=== PATIENT | male | born 1955 | race Caucasian/White ===

== ENCOUNTER → 2018-08-06 | Outpatient (CLI) | payer BC, MEDICARE ==
[~2018-08-06] MED LIST: MORPHINE SULFAT15 M3 PO; MS CONTIN15 MG PO; MULTIVITAMINS1 EAC7 PO; OMEPRAZOLE40 MG PO; SYNTHROID88 MCG PO
--- NOTE | 2018-09-14 10:00 | PAINCON ---
[address] [address] PAIN MANAGEMENT CONSULTATION Name: NEREIDA MORTON Room: [facility] GONZALEZ SolorioEmmett#: [id number] Admission: 08/06/18 Attend Phys: Tae Garcia MD Discharge: Date of : 59 Report #: [id number] THIS REPORT FOR: //name// CC: FAM physician/PCP Naila Garcia DATE OF SERVICE: 08/06/2018 CHIEF COMPLAINT: Chronic pain. "I have seen 13 different neurologists over the last 19 years." HISTORY OF PRESENT ILLNESS: The patient is a 63-year-old gentleman who has been referred to the pain clinic for evaluation of chronic back and headache pain. States that he has had pain, which has been problematic for many years. He recalls having seen about 13 different neurologists and has been treated with CT, MRIs and a number of other tests with no real definite findings for the chronic pain he experienced in the anterior forehead area. He does have pain and discomfort in his low back area. He has had a history of degenerative joint disease in his back. He did have spinal cord stimulator placed in the past. He did not have long-term benefit and it was removed. He has undergone acupuncture. He has had a series of epidural steroid injections over the years with no long-term benefit. He has undergone biofeedback. He has undergone bariatric surgery. At this juncture, it is found that morphine has been the best reliever for his pain. He has recently moved to [place]. States that his works in association with [employer]. She was given a job in this area and this reason, they have moved here. The patient was followed by pain specialist of [place] in [place]. Information from the pain center there indicated that the patient has had no problems with his medications. He has been trustworthy. They would gladly resume his care should he choose to return to [place]. He has been treated with morphine sulfate 15 mg p.o. b.i.d. p.r.n. as well as MS Contin 15 mg 1 p.o. b.i.d. and ketorolac 30 mg injections p.r.n. migraine headaches. ALLERGIES: No known drug allergies. CURRENT MEDICATIONS: Synthroid 88 mcg, morphine sulfate 15 mg b.i.d., morphine extended release/MS Contin 15 mg q. 12 hours, multivitamins, omeprazole. Medicines used in the past: Ketorolac 30 mg injection p.r.n. migraine headache. PAST MEDICAL HISTORY: Gout, hypertension, borderline diabetes, obstructive sleep apnea and seasonal allergies, history of skin cancer - melanoma, painful left breast mass, COPD, depressive disorder, hypothyroidism, gout, orthostatic hypotension, mixed hyperlipidemia, chronic migraines greater than 15 years, right urethral duplication. Macular degeneration in [place] [address] PAIN MANAGEMENT CONSULTATION Name: NEREIDA MORTON Room: [facility] GONZALEZ Sheridan#: [id number] Admission: 08/06/18 Attend Phys: Tae Garcia MD Discharge: Date of : 59 Report #: [id number] thought that the vessels in the eye may be compromised, potentially contributing to his headaches. Prostate cancer with metastases to the colon -- status post chemotherapy, radiation and radioactive endoscopic seed implantations -- found to be cancer free post-treatment. PAST SURGICAL HISTORY: Salivary stone removal; dental surgeries; left knee surgery; skin cancer resection, umbilical hernia repair, 01/2012; spinal cord stimulator implant, 09/17/2012; gastric sleeve, 02/27/2015; spinal cord stimulator explant, 08/14/2015; interventional treatments and supraorbital block, no benefit, 2011; lower extremity epidural steroid injection, good relief, 50%, but only for 2 months; spinal cord stimulator trial, 60-70% relief, single lead trial. 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 REVIEW OF SYSTEMS: Questionnaire generally good health, has fatigue, weakness, headaches, wears glasses, blurred vision, glaucoma/cataracts, hearing loss, swelling in feet, ankles, hands, asthma, frequent urination, awakes at night to urinate, has had cancer, some sexual difficulties, joint pain, joint stiffness, weakness of muscles and joints, muscle pain and cramps, back pain, difficulty walking, varicose veins, recurring headaches, lightheadedness. LABORATORY DATA: No laboratory values are available at the time of our interview. PAIN CLINIC ASSESSMENT: 1. History of osteoarthritis. The patient is suffering from some degenerative joint disease in his low back area. He has also been found to have osteoporosis. 2. Height 5 feet 6 inches, weight 187 pounds, BMI is 30. 3. Vital signs: Blood pressure 153/75, heart rate 67, respiratory rate 16, room air saturation 97%, temperature 98.7. Pain score 4 out of 10, 3 out of 10 for the back and degenerative joint problems. 4. Fall risk. The patient has not fallen over the last 3 months. Did get trip by his dogs. 5. Blood thinner. The patient is not on a blood thinning medication. 6. Hypertension. The patient is not being treated for hypertension at this juncture. 7. Opioid therapy greater than 6 weeks. The patient has been receiving opioid medications. Last received them from his pain clinic in [place], [place]. He has been in good standing. 8. Functional assessment tool. 9. Recreational drug use. The patient denies use of recreational drugs. 10. Tobacco: The patient stopped smoking cigarettes in 1996, had a 73-jwtt-mztk smoking history. Does chew tobacco at this juncture. 11. Alcohol: One to two [place] [address] PAIN MANAGEMENT CONSULTATION Name: NEREIDA MORTON Room: [facility]#: [id number] Admission: 08/06/18 Attend Phys: Tae Garcia MD Discharge: Date of : 59 Report #: [id number] PHYSICAL EXAMINATION: GENERAL: The patient is a well-developed, well-nourished white male. Appears his stated age. He is alert and oriented x 3. Speech is fluent. HEENT: Normocephalic, atraumatic. Extraocular eye muscles intact. Sclerae nonicteric. Mucous membranes are moist. NECK: Without JVD, adenopathy. The patient does have some pain and discomfort in the frontotemporal area on the left, etiology of which has remained enigmatic for a number of years. HEART: Regular rate. S1, S2. LUNGS: Clear to auscultation without rhonchi or rales. ABDOMEN: Protuberant without organomegaly. EXTREMITIES: Upper extremity muscle strength is judged to be 5/5 for the major muscle groups in the upper extremities with +1 biceps, reach flexes. Lower extremity muscle strength is judged to be 5/5 for the major muscle groups. The patient has some low back pain and discomfort. He has some achy pain with a stabbing sensation in the L4-L5 paraspinous area bilaterally. Muscle strength in the lower extremities is gauged to be 5/5 for the major muscle groups. Sensory is within normal limits. IMPRESSION: 1. Chronic headache, pain greater than 15 years. Nonspecific migraine like headaches, etiology unknown. 2. Low back axial pain status post spinal stimulator placement/removed 2013. 3. Gout. 4. Hypertension. 5. Borderline diabetes. 6. Obstructive sleep apnea and seasonal allergies. 7. History of skin cancer - melanoma. 8. Painful left breast mass. 9. COPD. 10. Depressive disorder. 11. Hypothyroidism. 12. Gout. 13. Orthostatic hypotension. 14. Mixed hyperlipidemia. 15. Chronic migraines greater than 15 years. 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 17. Macular degeneration in his left eye. It is thought that the vessels in the eye may be compromised, potentially contributing to his headaches. 18. Prostate cancer with metastases to the colon -- status post chemotherapy, radiation and radioactive endoscopic seed implantations -- found to be cancer free post-treatment. RECOMMENDATIONS: We discussed treatment options with the patient. At this point, we received his information from the pain clinical lab [place] [address] PAIN MANAGEMENT CONSULTATION Name: NEREDIA MORTON Room: [facility] GONZALEZ Sheridan#: [id number] Admission: 08/06/18 Attend Phys: Tae Garcia MD Discharge: Date of : 59 Report #: [id number] It appears that the patient was in good standing. They would be happy to take him back should he return to the area. We will continue with his current medical regimen of MS Contin 15 mg b.i.d. daily as well as morphine immediate release 15 mg daily. He will follow up in the near future. We will then have the patient sign a contract with the pain clinic indicating that he will get his medications from 1 source. We would like to thank you for letting us participate in his care. We hope he continues to improve. <ELECTRONICALLY SIGNED> By: Tae Garcia MD 09/14/18 1000 1553 [id number]. Junior Garcia MD /nt
== END ==
LOC: M.PC 11:18
DX: M54.5 Low back pain (principal); G89.29 Other chronic pain; G43.709 Chronic migraine without aura, not intractable, without status migrainosus; I10 Essential (primary) hypertension; G47.33 Obstructive sleep apnea (adult) (pediatric); J44.9 Chronic obstructive pulmonary disease, unspecified; E03.9 Hypothyroidism, unspecified; E78.2 Mixed hyperlipidemia; C61 Malignant neoplasm of prostate; F32.9 Major depressive disorder, single episode, unspecified; M10.9 Gout, unspecified; I95.1 Orthostatic hypotension; H35.3220 Exudative age-related macular degeneration, left eye, stage unspecified

== ENCOUNTER → 2018-08-18 | Outpatient (CLI) | payer BC, MEDICARE ==
--- NOTE | 2018-09-14 10:00 | PAINCON ---
[facility] [address] [place] [address] PAIN MANAGEMENT CONSULTATION Name: NEREIDA MORTON Room: [facility] GONZALEZ RobertsonLara#: [id number] Admission: 08/18/18 Attend Phys: Tae Garcia MD Discharge: Date of : 59 Report #: [id number] THIS REPORT FOR: //name// CC: [facility] physician/PCP Naila Anaya DATE OF SERVICE: 08/18/2018 FOLLOWUP COMPLAINT: Here for medication. FOLLOWUP HISTORY: The patient is a 63-year-old gentleman who has been followed in the pain clinic because of chronic pain in his back as well as headaches. As you recall, he was re-established himself in [place]. His works for [email or web address]. At this juncture, he was looking for a new Pain Clinic. He was seen by the Pain Clinic in [place]. Overall, things are going reasonably well with him. He has returned today for a renewal of his medications. He feels like things are going reasonably well. Has no real concerns. ALLERGIES: No known drug allergies. CURRENT MEDICATIONS: Synthroid 88 mcg, morphine 15 mg b.i.d. immediate release, morphine extended release/MS Contin 15 mg q.12h., multivitamins, omeprazole. PAIN CLINIC ASSESSMENT 1. History of osteoarthritis. The patient is suffering from some degenerative joint disease in the low back area. He also has been found to have osteoporosis. 2. Height 5 feet 6 inches, weight 187 pounds, BMI is 30. 3. Vital signs: Blood pressure 142/92, heart rate 83, respiratory rate 16, room air saturation 97%, temperature 98.5. 4. Pain score 3/10. 5. Fall history: The patient has not fallen in the last 3 months. 6. Blood thinner. The patient is not on a blood thinning medication. 7. Hypertension. The patient is not being treated for hypertension. 8. Opioid therapy greater than 6 weeks. The patient will receive his medications from one source, the Pain Clinic. 9. Functional assessment tool. 10. Recreational drug use. The patient denies use of recreational drugs. 11. Tobacco: the patient stop smoking cigarettes in 1996, had a 90-qgdy-aphp smoking history. 12. Alcohol: The patient denies use of alcoholic beverages. PHYSICAL EXAMINATION: GENERAL: The patient is a well-developed, well-nourished white male. Appears his stated age. He is alert and oriented x 3. [place] [address] PAIN MANAGEMENT CONSULTATION Name: NEREIDA MORTON Room: [facility]#: [id number] Admission: 08/18/18 Attend Phys: Tae Garcia MD Discharge: Date of : 59 Report #: [id number] HEENT: Normocephalic, atraumatic. Extraocular eye muscles intact. Sclerae nonicteric. Mucous membranes are moist. NECK: Without JVD, adenopathy, or adenopathy. The patient does have some pain and discomfort in the frontal areas of his head. This has remained ____ for a number of years. HEART: Heart rate regular S1, S2. LUNGS: Clear to auscultation without rhonchi or rales. ABDOMEN: Protuberant without organomegaly. EXTREMITIES: Upper extremity strength is judged to be 5/5 for the major muscle groups. Lower extremity muscle strength is judged to be 5/5 for the major muscle groups. IMPRESSION: 1. Chronic headaches, pain greater than 15 years. Nonspecific migraine like headaches, etiology unknown. 2. Low back pain, status post spinal cord stimulator placement and removal in 2013. 3. Gout. 4. Hypertension. 5. Borderline diabetes. 6. Obstructive sleep apnea with seasonal allergies. 7. History of skin cancer -- melanoma. 8. Painful left breast mass. 9. Chronic obstructive pulmonary disease 10. Digoxin depressive disorder. 11. Hypothyroidism. 12. Gout. 13. Orthostatic hypotension. 14. Mixed hyperlipidemia. 15. Chronic migraine headaches greater than 15 years. 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 17. Macular degeneration, left eye. 18. Prostate cancer with metastasis to the colon, status post chemotherapy radiation found to be cancer free. RECOMMENDATIONS: We discussed treatment options with the patient. We will continue with his current medical regimen, which he was under in [place]. He states that the medications continue to be helpful. A script for his medications has been written. He will follow up in a month. He will call us if he has any problems [place] [address] PAIN MANAGEMENT CONSULTATION Name: NEREIDA MORTON [id number] Admission: 08/18/18 Attend Phys: Tae Garcia MD Discharge: Date of : 59 Report #: [id number] We would like to thank you for letting us participate in his care. We hope he continues to improve. <ELECTRONICALLY SIGNED> By: Tae Garcia MD 09/14/18 1000 [id number] [id number] Garcia MD /nt
== END ==
LOC: M.PC 05:57
DX: M54.5 Low back pain (principal); G89.29 Other chronic pain; I10 Essential (primary) hypertension; G47.33 Obstructive sleep apnea (adult) (pediatric); J44.9 Chronic obstructive pulmonary disease, unspecified; E03.9 Hypothyroidism, unspecified; E78.2 Mixed hyperlipidemia; G43.909 Migraine, unspecified, not intractable, without status migrainosus; C61 Malignant neoplasm of prostate; N64.4 Mastodynia; M10.9 Gout, unspecified; F32.9 Major depressive disorder, single episode, unspecified; I95.1 Orthostatic hypotension; H35.3121 Nonexudative age-related macular degeneration, left eye, early dry stage; Z79.899 Other long term (current) drug therapy

== ENCOUNTER → 2018-09-15 | Outpatient (CLI) | payer BC, MEDICARE ==
--- NOTE | 2018-10-14 15:56 | PAINCON ---
[facility] [address] [place] [address] PAIN MANAGEMENT CONSULTATION Name: NEREIDA MORTON Room: [facility] MarceloLara#: [id number] Admission: 09/15/18 Attend Phys: Tae Garcia MD Discharge: Date of : 59 Report #: [id number] THIS REPORT FOR: //name// CC: Tae Issa DATE OF SERVICE: 09/15/2018 CHIEF COMPLAINT: "Medication renewal and would like to get a handicap sticker, I had one when I was in [place]." FOLLOW-UP HISTORY: The patient is a 63-year-old gentleman who has been followed in the Pain Clinic because of chronic pain involving his back. He also has headache pain. He has re-established in [place]. He had good records while being covered by Pain Clinic in [place]. Overall, he has followed up here and finds that his medications are helpful. He had a problem with walking. He was issued a sticker in [place] for handicap parking. He would like to proceed with another sticker while being a [place] resident. Overall, things are going reasonably well. He is having no problem with his medications. He has returned today for renewal of the medications. ALLERGIES: No known drug allergies. CURRENT MEDICATIONS: Synthroid 88 mcg, morphine 15 mg b.i.d. immediate release, morphine extended release 15 mg q. 12 hours, multivitamins, omeprazole. PAIN CLINIC ASSESSMENT/PQRS: 1. History of osteoarthritis: The patient has some degenerative changes in his back. He has also been found to have osteoporosis. He is not being treated for rheumatoid arthritis. 2. Height 5 feet 6 inches, weight 195 pounds, BMI is 30. 3. Vital signs: Blood pressure 140/79, heart rate 71, respiratory rate 16, room air saturation 98%, temperature 98.5. 4. Pain intensity score: 3/10. 5. Fall history: The patient has not fallen in the last 3 months. 6. Blood thinner: The patient is not on a blood thinning medication. 7. Hypertension: The patient is not being treated for hypertension. 8. Opioid therapy greater than 6 weeks: The patient receives all his medications through one clinic, the pain Clinic. 9. Risk assessment tool: Low for use of opioid. 10. Recreational drug use: The patient denies use of recreational drugs. 11. Tobacco: The patient stopped smoking cigarettes in 1996; had a 87-ggoo-nrgx smoking history. 12. Alcohol: The patient denies use of alcoholic beverages. PHYSICAL EXAMINATION: [place] [address] PAIN MANAGEMENT CONSULTATION Name: NEREIDA MORTON Room: [facility]#: [id number] Admission: 09/15/18 Attend Phys: Tae Garcia MD Discharge: Date of : 59 Report #: [id number] GENERAL: The patient is a well-developed, well-nourished white male. He appears his stated age. He is alert and oriented x 3. Speech is fluent. HEENT: Normocephalic, atraumatic. Extraocular eye muscles are intact. Sclerae are nonicteric. Mucous membranes are moist. The patient continues to have some frontal sinus headache. He has had this for a number of years. NECK: Without JVD, adenopathy, or bruits. HEART: Regular rate. S1, S2. LUNGS: Clear to auscultation, without rhonchi or rales. ABDOMEN: Protuberant, without organomegaly. Bowel sounds are present. EXTREMITIES: Upper extremity muscle strength is judged to be 5/5 for the major muscle groups. Lower extremity muscle strength 5/5. The patient does walk with limp and antalgic gait because of pain and discomfort involving his low back area. IMPRESSION: 1. Chronic migraine headaches, greater than 15 years, nonspecific migraine like headaches, unknown etiology. 2. Low back pain status post spinal cord stimulator which was subsequently removed in 2013. 3. Gout. 4. Hypertension. 5. Borderline diabetes. 6. Obstructive sleep apnea with seasonal allergies. 7. History of skin cancer - melanoma. 8. Painful left breast mass. 9. Chronic obstructive pulmonary disease. 10. ____. 11. Depression. 12. Hypothyroidism. 13. Orthostatic hypotension. 14. Mixed hyperlipidemia. 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 16. Macular degeneration, left eye. 17. Prostate cancer with metastases to the colon - status post chemotherapy, found to be cancer-free. RECOMMENDATIONS: We discussed treatment options with the patient. At this juncture, he continues to have pain and discomfort in his head. We will continue with his morphine medication. He finds that these medications are helpful. The patient also walks with a cane. He has a chronic low back pain picture. He did have a spinal cord stimulator, did not notice significant long-term benefit from this. He had undergone a series of epidural steroid injection over the years. He continues to walk with the use of a cane because of the pain and discomfort. The patient had a sticker for handicap parking in [place]. We have re-written a statement verifying for 180 days use of a handicap sticker. The patient qualifies under person ambulates [place] [address] PAIN MANAGEMENT CONSULTATION Name: MORTON,NEREIDA Medina Room: [facility]#: [id number] Admission: 09/15/18 Attend Phys: Tae Garcia MD Discharge: Date of : 59 Report #: [id number] will follow up in the near future. We would like to thank you for letting us participate in his care. We hope he continues to improve. <ELECTRONICALLY SIGNED> By: Tae Garcia MD 10/14/18 1556 1101 [id number]. Junior Garcia MD /nt
== END ==
LOC: M.PC 05:16
DX: G43.909 Migraine, unspecified, not intractable, without status migrainosus (principal); M54.5 Low back pain; M10.9 Gout, unspecified; I10 Essential (primary) hypertension; G47.33 Obstructive sleep apnea (adult) (pediatric); J44.9 Chronic obstructive pulmonary disease, unspecified; F32.9 Major depressive disorder, single episode, unspecified; E03.9 Hypothyroidism, unspecified; E78.2 Mixed hyperlipidemia; C78.5 Secondary malignant neoplasm of large intestine and rectum; H35.3120 Nonexudative age-related macular degeneration, left eye, stage unspecified; I95.1 Orthostatic hypotension; N60.02 Solitary cyst of left breast; Z85.820 Personal history of malignant melanoma of skin

== ENCOUNTER → 2018-10-15 | Outpatient (CLI) | payer BC, MEDICARE ==
--- NOTE | ~2018-10-15 | PAINCON ---
[facility] [address] [place] [address] PAIN MANAGEMENT CONSULTATION Name: NEREIDA MORTON Room: [facility] LyndseyEmmett#: [id number] Admission: 10/15/18 Attend Phys: Tae Garcia MD Discharge: Date of : 59 Report #: [id number] THIS REPORT FOR: //name// CC: Tae Issa DATE OF SERVICE: 10/15/2018 HISTORY: Here for medication renewal, things are going pretty good. FOLLOWUP HISTORY: The patient is a 63-year-old gentleman who has been followed in the Pain Clinic. As you recall, he has a problems with his back. He also has been treated over the long-term for headache pain. He has moved to [place]. 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 He notes that his low back pain as well as headaches continue to be improved by use of morphine. He is taking the medications as prescribed. He is not having any problems with it. Recently, he has gotten a parking sticker. He does walk with a cane because of his low back pain and discomfort. Denies any bowel or bladder dysfunction. He has returned for renewal of his medications. ALLERGIES: No known drug allergies. MEDICATIONS: Synthroid 88 mcg, morphine 15 mg b.i.d., immediate release morphine, extended release morphine, both are 15 mg for a total of 60 mg daily. PAIN CLINIC ASSESSMENT/PQRS: 1. History of osteoarthritis. The patient has some degenerative changes in his low back. He has also been found to have osteoporosis. He has not been treated for rheumatoid arthritis. 2. Height 5 feet 6 inches, weight 197 pounds, BMI 31.7. 3. Vital signs: Blood pressure 130/83, heart rate 76, respiratory rate 16, room air saturation 98%, temperature 98.4. 4. Pain score 3/10. 5. Fall history: The patient has not fallen in the last 3 months. 6. Blood thinner. The patient is not on a blood thinning medication. 7. Hypertension. The patient is not being treated for hypertension. 8. Opioids greater than 6 weeks. The patient receives this medication from one source, the pain clinic. 9. Risk assessment tool, low for use of opioid. 10. Recreational drug use. The patient denies use of recreational drugs. 11. Tobacco: The patient stopped smoking cigarettes in 1996. Has had a 18-qqve-xfut smoking history. 12. Alcohol: The patient denies use of alcoholic beverages. PHYSICAL EXAMINATION: GENERAL: The patient is a well-developed, well-[place] [address] PAIN MANAGEMENT CONSULTATION Name: NEREIDA MORTON Room: [facility]#: [id number] Admission: 10/15/18 Attend Phys: Tae Garcia MD Discharge: Date of : 59 Report #: [id number] his stated age. He is alert and oriented x 3. Speech is fluent. HEENT: Normocephalic, atraumatic. Extraocular eye muscles intact. Sclerae nonicteric. Mucous membranes are moist. The patient has continued pain in the frontal sinus area where he has the area of his chronic headaches. This has been there for many years. NECK: Without JVD, adenopathy, or bruits. HEART: Regular rate. S1, S2. LUNGS: Clear to auscultation without rhonchi or rales. ABDOMEN: Protuberant without organomegaly. Bowel sounds present. EXTREMITIES: Upper extremity muscle strength is judged to be 5/5 for the major muscle groups. Lower extremity muscle strength appears to be 5/5 overall. The patient walks with a limp. Uses a cane. Does complain of pain involving the low back area. IMPRESSION: 1. Chronic migraine headaches greater than 15-year duration, nonspecific migraine like headaches, unknown etiology. 2. Low back pain status post spinal cord stimulator which was subsequently removed in 2013. 3. Gout. 4. Hypertension. 5. Borderline diabetes. 6. Obstructive sleep apnea with seasonal allergies 7. History of skin cancers-melanoma. 8. Painful left breast mass. 9. Chronic obstructive pulmonary disease. 10. Depression. 11. Hypothyroidism. 12. Orthostatic hypotension. 13. Mixed hyperlipidemia. 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 15. Macular degeneration, left eye. 16. Prostate cancer with metastases to the colon-status post chemotherapy, found to be cancer free at this juncture. RECOMMENDATIONS: We discussed treatment options with the patient. We will continue with his current medication. He feels that the medication is helpful. He is having no problem with medication. He feels that his mentation is clear. 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 Has benefit from the parking sticker, which allows in the parking a restricted area. We would like to thank you for letting us participate in his care. We hope he continues to improve. By: 0851 [id number]. Junior Garcia MD /nt
== END ==
LOC: M.PC 10-13 08:40
DX: G43.909 Migraine, unspecified, not intractable, without status migrainosus (principal); G89.29 Other chronic pain; M54.5 Low back pain; M10.9 Gout, unspecified; I10 Essential (primary) hypertension; G47.33 Obstructive sleep apnea (adult) (pediatric); J44.9 Chronic obstructive pulmonary disease, unspecified; F32.9 Major depressive disorder, single episode, unspecified; E03.9 Hypothyroidism, unspecified; E78.2 Mixed hyperlipidemia; H35.3220 Exudative age-related macular degeneration, left eye, stage unspecified; Q92.5 Duplications with other complex rearrangements; I95.1 Orthostatic hypotension; N63.20 Unspecified lump in the left breast, unspecified quadrant; Z79.899 Other long term (current) drug therapy; Z85.820 Personal history of malignant melanoma of skin; Z85.46 Personal history of malignant neoplasm of prostate

== ENCOUNTER → 2018-10-26 | Outpatient (CLI) | payer BC, MEDICARE | END | disposition home or self-care (01) | LOC: M.RAD 10-16 07:51 → M.MRI 10-23 13:00 → M.RAD 12:39 → M.MRI 12:39 → M.RAD 13:00 | DX: S46.012A Strain of muscle(s) and tendon(s) of the rotator cuff of left shoulder, initial encounter (principal); S46.112A Strain of muscle, fascia and tendon of long head of biceps, left arm, initial encounter; S43.492A Other sprain of left shoulder joint, initial encounter; M25.512 Pain in left shoulder; X58.XXXA Exposure to other specified factors, initial encounter; Y93.89 Activity, other specified; Y92.89 Other specified places as the place of occurrence of the external cause; Y99.8 Other external cause status; Z79.899 Other long term (current) drug therapy; Z98.890 Other specified postprocedural states ==

== ENCOUNTER → 2018-11-10 | Outpatient (CLI) | payer BC, MEDICARE ==
--- NOTE | ~2018-11-10 | PAINCON ---
[facility] [address] [place] [address] PAIN MANAGEMENT CONSULTATION Name: NEREIDA MORTON Room: [facility] GONZALEZ Sheridan#: [id number] Admission: 11/10/18 Attend Phys: Tae Garcia MD Discharge: Date of : 59 Report #: [id number] THIS REPORT FOR: //name// CC: Tae Issa DATE OF SERVICE: 11/10/2018 HISTORY: "Could have left shoulder surgery tomorrow. ____ everything you can tear a part." FOLLOWUP HISTORY. The patient is a 63-year-old gentleman who has been followed in the pain clinic. As you recall, he has some problems with his back. He has been [facility]. He and his have moved to [place]. 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 He is having pain and discomfort in his left shoulder. He states that he has had pain in the shoulder for quite a number of years. They have told him that he should probably have surgery. At this juncture, he feels that he has come to a point where it is needed. He has been walking with his left shoulder in an arm sling. He continues to walk and use a cane. Denies any bowel or bladder dysfunction. Denies any problems with his medications. He feels the medications are helpful. He does not feel that they are clouding his sensorium. Overall, he would like to continue with his medications and has returned today for renewal of those medications. ALLERGIES: No known drug allergies. MEDICATIONS: Synthroid 88 mcg, morphine 15 mg b.i.d., immediate release morphine, extended release morphine 15 mg total daily intake 60 mg morphine daily. PAIN CLINIC ASSESSMENT/PQRS: 1. History of osteoarthritis. The patient has some degenerative changes in his low back. He has had some knee arthroscopic surgery. He has some problem with his left shoulder with tear of the labrum and the patient is not being treated for rheumatoid arthritis. 2. Height 5 feet 6 inches, weight 200 pounds, BMI 32. 3. Vital Signs: Blood pressure 145/84, heart rate 74, respiratory rate 16, room air saturation 98%, temperature 98.4. 4. Pain intensity 02/07. 5. Fall risk. The patient has not fallen. He was tripped by his dog. He did not go to the Emergency Room. 6. Blood thinner. The patient is not on a blood thinning medication. 7. History of hypertension. The patient has not been treated for hypertension. 8. Opioid greater than 6 weeks. The patient receiving his medication from one source, [place] [address] PAIN MANAGEMENT CONSULTATION Name: NEREIDA MORTON [facility] [id number] Admission: 11/10/18 Attend Phys: Tae Garcia MD Discharge: Date of : 59 Report #: [id number] 9. Risk assessment tool, low for opioid use. 10. Functional assessment tool. 11. Recreational drug use. The patient denies use of recreational drugs. 12. Tobacco: The patient stopped smoking in 1996, has a 25-year smoking history. 13. Alcohol: The patient denies more than occasional use of alcoholic beverages. PHYSICAL EXAMINATION: GENERAL: The patient is a well-developed, well-nourished white male. Appears his stated age. He is alert and oriented x 3. His affect is appropriate. Speech is fluent. HEENT: Normocephalic, atraumatic. Extraocular eye muscles intact. Sclerae nonicteric. Mucous membranes are moist. The patient has some continued pain in the frontal area where he has these chronic headaches. This has been ongoing for many years. HEENT: Normocephalic. NECK: Without JVD, adenopathy, or bruits. HEART: Regular rate. S1, S2. LUNGS: Clear to auscultation without rhonchi or rales. EXTREMITIES: Upper extremity left is in a sling. Strength is judged to be 4+/5 for the major muscle groups. Right upper extremity is 5/5. Lower extremity, the patient walks with a limp. He uses a cane. Pain in the lower back, -5/5 for the major muscle groups. IMPRESSION: 1. Chronic migraine headaches greater than 15 years' duration, nonspecific migraine like headaches with unknown etiology. 2. Left shoulder pathology with tear of the labrum as well as a number of the rotator muscles. 3. Gout. 4. Hypertension. 5. Borderline diabetes. 6. Obstructive sleep apnea with seasonal allergies. 7. History of skin cancer/melanoma. 8. Painful left breast mass removed. 9. Chronic obstructive pulmonary disease. 10. Depression. 11. Hypothyroidism. 12. Orthostatic hypotension. 13. Hyperlipidemia. 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 15. Macular degeneration, left eye. 16. Prostate cancer with metastases to the colon, status post chemotherapy, found to be cancer [place] [address] PAIN MANAGEMENT CONSULTATION Name: NEREIDA MORTON Room: [facility]#: [id number] Admission: 11/10/18 Attend Phys: Tae Garcia MD Discharge: Date of : 59 Report #: [id number] RECOMMENDATIONS: We discussed treatment options with the patient. At this juncture, he will continue with his current medications. The patient is slated to undergo a left shoulder surgery. He will approach his orthopedic doctor. They will be give him the usual medications that he prescribes postop. The patient states that he is going to have a block of his shoulder. Hopefully, this will be beneficial and make it more comfortable at his convalescence. A script for his medications of morphine sulfate 15 mg daily as well as morphine sulfate IR 15 mg b.i.d. have been written. We would like to thank you for letting us participate in his care. We hope he continues to improve. By: [id number]. Junior Garcia MD /nt
== END ==
LOC: M.PC 04:38
DX: G43.909 Migraine, unspecified, not intractable, without status migrainosus (principal); I10 Essential (primary) hypertension; G47.33 Obstructive sleep apnea (adult) (pediatric); J44.9 Chronic obstructive pulmonary disease, unspecified; F32.9 Major depressive disorder, single episode, unspecified; E03.9 Hypothyroidism, unspecified; E78.5 Hyperlipidemia, unspecified; C61 Malignant neoplasm of prostate; M10.9 Gout, unspecified; I95.1 Orthostatic hypotension; R73.03 Prediabetes; H35.30 Unspecified macular degeneration; Q64.79 Other congenital malformations of bladder and urethra; Z85.828 Personal history of other malignant neoplasm of skin

== ENCOUNTER → 2018-12-08 | Outpatient (CLI) | payer BC, MEDICARE ==
--- NOTE | ~2018-12-08 | PAINCON ---
[facility] [address] [place] [address] PAIN MANAGEMENT CONSULTATION Name: NEREIDA MORTON Room: [facility] GONZALEZ SolorioEmmett#: [id number] Admission: 12/08/18 Attend Phys: Tae Garcia MD Discharge: Date of : 59 Report #: [id number] THIS REPORT FOR: //name// CC: Tae Issa DO DATE OF SERVICE: 12/08/2018 FOLLOWUP HISTORY: Here for medications. The pain is about 6 . It is more painful than I thought it would be. HISTORY: The patient is a 63-year-old gentleman who has been followed in the pain clinic. As you recall, he does have a history of back problems. He also has long-term pain problems with chronic headaches. He moved to [place]. 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 He recently had shoulder surgery on the left. He has some torn ligaments in the shoulder. He underwent surgery. Overall, he does feel that the pain is more than he had expected. Rates it as a 6/10 at this point. Pain in his other areas. Generally, he would report it as 3. He has had no problems with his medications. Overall, he feels things are going reasonably well. 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 He would like to have his medications renewed at this juncture. He has had no complications with them. ALLERGIES: No known drug allergies. CURRENT MEDICATIONS: Synthroid 88 mcg, morphine 15 mg b.i.d., immediate release, extended release morphine 15 mg total of 60 mg daily. PAIN CLINIC ASSESSMENT/PQRS: 1. History of osteoarthritis. The patient has some degenerative changes in his low back. Also, has some knee problems and is status post orthopedic surgery in his knee. Status post shoulder surgery for labrum tear. The patient is not being treated for rheumatoid arthritis. 2. Height 5 feet 6 inches, weight 198 pounds, BMI is 32. 3. Vital Signs: Blood pressure 126/80, heart rate 65, respiratory rate 16, room air saturation 96%, temperature 99.1. 4. Pain intensity is a 3. Overall, in 05/10 in reference to his left shoulder. The patient has not fallen in the last month. 5. Blood thinner. The patient is not on a blood thinning medication. 6. History of hypertension. The patient is not being treated for hypertension. 7. Opioid greater than 6 weeks. The patient refuses medication from one source, the pain clinic. 8. Risk assessment tool, low for opioid use. 9. [place] [address] PAIN MANAGEMENT CONSULTATION Name: NEREIDA MORTON Room: [facility]#: [id number] Admission: 12/08/18 Attend Phys: Tae Garcia MD Discharge: Date of : 59 Report #: [id number] 10. Recreational drug use. The patient denies use of recreational drugs. 11. Tobacco: The patient stopped smoking in 1996, has a 25-year history, smoking. 12. Alcohol: The patient denies more than occasional use of alcoholic beverage. PHYSICAL EXAMINATION: GENERAL: The patient is a well-developed, well-nourished white male. Appears his stated age. He is alert and oriented x 3. His affect is appropriate. Speech is fluent. HEENT: Normocephalic, atraumatic. Extraocular eye muscles intact. Sclerae nonicteric. Mucous membranes are moist. Has some pain and discomfort in frontal area of his head, which is chronic in nature and has been ongoing for a number of years. NECK: Without JVD, adenopathy, or bruits. HEART: Regular rate. S1, S2. LUNGS: Clear to auscultation without rhonchi, rales. EXTREMITIES: Upper extremity, the patient has a sling on his left arm. He is complaining of some increased pain in this area and rates it as a 6/10. Right upper extremity 5/5 for the major muscle groups. Lower extremity, the patient walks with use of a cane. Has pain in the low back area. Rates it as 5-/5 for the major muscle groups. IMPRESSION: 1. Chronic migraine headaches. Greater than 15 years' duration, nonspecific migraine like headaches of unknown etiology. 2. Left shoulder pathology with tear of the labrum, status post shoulder repair. 3. Gout. 4. Hypertension. 5. Borderline diabetes. 6. Obstructive sleep apnea with allergic rhinitis. 7. History of skin cancer/melanoma. 8. Painful left breast, mass removed. 9. Chronic obstructive pulmonary disease. 10. Depression. 11. Hypothyroidism. 12. Orthostatic hypotension history. 13. Hyperlipidemia. 14. Right ureteral dilation or duplication 15. Macular degeneration, left eye. 16. Prostate cancer with mets of the colon, status post chemotherapy, found to be cancer free at this juncture. RECOMMENDATION: We will continue with his current medications. Risks and benefits of opioid medications have been discussed [place] [address] PAIN MANAGEMENT CONSULTATION Name: NEREIDA MORTON Room: [facility]#: [id number] Admission: 12/08/18 Attend Phys: Tae Garcia MD Discharge: Date of : 59 Report #: [id number] like to it in the future after it is healed up, start a program to decrease use of the opioids. Risks and benefits of the medicine is again were reviewed with the patient. He keeps his medications in a guarded area. Feels that the medications are helpful, has returned today with a desire to get a renewal of his medications of morphine sulfate immediate release and morphine sulfate prolonged released. These medications have been released to the patient. Feels overall this pain is 50% improved with use of his medications. We would like to thank you for letting us participate in his care. We hope he continues to improve. By: [id number]. Junior Garcia MD /DIANE
== END ==
LOC: M.PC 08:20
DX: G43.909 Migraine, unspecified, not intractable, without status migrainosus (principal); M10.9 Gout, unspecified; S43.402A Unspecified sprain of left shoulder joint, initial encounter; I10 Essential (primary) hypertension; G47.33 Obstructive sleep apnea (adult) (pediatric); J30.9 Allergic rhinitis, unspecified; J44.9 Chronic obstructive pulmonary disease, unspecified; F32.9 Major depressive disorder, single episode, unspecified; E03.9 Hypothyroidism, unspecified; E78.5 Hyperlipidemia, unspecified; I95.1 Orthostatic hypotension; C61 Malignant neoplasm of prostate; H35.3131 Nonexudative age-related macular degeneration, bilateral, early dry stage; N28.82 Megaloureter; Z79.899 Other long term (current) drug therapy; X58.XXXA Exposure to other specified factors, initial encounter; Y93.89 Activity, other specified; Y92.89 Other specified places as the place of occurrence of the external cause; Y99.8 Other external cause status

== ENCOUNTER → 2019-01-05 | Outpatient (CLI) | payer BC, MEDICARE ==
--- NOTE | ~2019-01-05 | PAINCON ---
[facility] [address] [place] [address] PAIN MANAGEMENT CONSULTATION Name: NEREIDA MORTON Room: [facility] GONZALEZ Sheridan#: [id number] Admission: 01/05/19 Attend Phys: Tae Garcia MD Discharge: Date of : 59 Report #: [id number] THIS REPORT FOR: //name// CC: Tae Issa DATE OF SERVICE: 01/05/2019 CHIEF COMPLAINT: Here for medications. Things are going well. FOLLOWUP HISTORY: The patient is a 63-year-old gentleman who has been followed in the pain clinic. As you recall, he suffers from chronic back pain. He has a long history of pain problems. Also, has problems with chronic headaches. He moved to [place] to be with his . She received a job at [employer]. He now has a new job working as a [place]. Overall, he feels that things are going reasonably well. 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 He is quite happy about this new position. He feels that his medications are helpful. He does not have any problems with mentating. He is taking medications as prescribed. Still has some pain and discomfort in his left shoulder. Did have surgery on 11/11. He is still working out with physical therapy. ALLERGIES: No known drug allergies. MEDICATIONS: Synthroid 88 mcg, morphine 15 mg b.i.d., immediate release, extended release morphine 15 mg total of 60 mg morphine equivalents. PAIN CLINIC ASSESSMENT AND PQRS. 1. History of osteoarthritis. The patient has some arthritic changes in his low back. Has some changes in his shoulder and has had recent surgery in his shoulder. Also, has some problems in his knee. He is not being treated for rheumatoid arthritis. 2. Height 5 feet 6 inches, weight 198 pounds, BMI is 32. 3. Vital signs: Blood pressure 156/65, heart rate 83, respiratory rate 16, room air saturation 96%, and temperature 98.0. 4. Pain intensity 01/10. 5. Fall history: The patient has not fallen in the last 3 months. 6. Blood thinner. The patient is not on a blood thinning medication. 7. Hypertension. The patient is not being treated for hypertension. 8. Opioids greater than 6 weeks. The patient receives his medications from one source, the pain clinic. 9. Risk assessment tool, low for opioid use. 10. Functional assessment tool. 11. Recreational drug use. The patient denies use of recreational drugs. 12. Tobacco: The patient denies use of tobacco, stopped smoking in 1996, had a 25-year history of smoking. 13. Alcohol: The patient denies use of [place] [address] PAIN MANAGEMENT CONSULTATION Name: NEREIDA MORTON [id number] Admission: 01/05/19 Attend Phys: Tae Garcia MD Discharge: Date of : 59 Report #: [id number] occasional. PHYSICAL EXAMINATION: GENERAL: The patient is a well-developed, well-nourished white male. Appears his stated age. He is alert and oriented x 3. His affect is appropriate. Speech is fluent. HEENT: Normocephalic, atraumatic. Extraocular eye muscles intact. Sclerae nonicteric. Mucous membranes are moist. The patient continues to have pain in the frontal area of his head, which has been chronic and ongoing for a number of years. NECK: Without JVD, adenopathy, or bruits. HEART: Regular rate. S1, S2. LUNGS: Clear to auscultation without rhonchi or rales. EXTREMITIES. Upper extremity muscle strength is judged to be 5/5 in the right upper extremity. Left arm is no longer in a sling. He continues with physical therapy to ____. Lower extremity muscle strength, the patient walks with a cane. Has pain in the lower portion of his back. Rates his strength as 5-/5 for the major muscle groups in the lower extremity. IMPRESSION: 1. Chronic migraine headaches. Greater than 15-year duration, nonspecific migraine like headaches of unknown etiology. 2. Left shoulder pain, status post shoulder repair of the labrum. 3. Gout. 4. Hypertension. 5. Borderline diabetes. 6. Obstructive sleep apnea with allergenic rhinitis. 7. History of skin cancer/melanoma. 8. Painful left breast mass removed. 9. Chronic obstructive pulmonary disease. 10. Depression. 12. Hypertension. 13. Hypothyroidism. 14. Orthostatic hypotension history. 15. Hyperlipidemia. 16. Right urethral dilation/duplication. 17. Macular degeneration, left eye. 18. Prostate cancer with mets to the colon, status post chemotherapy, found to be cancer free at this juncture. RECOMMENDATIONS: We discussed the treatment option with patient. He feels his medications are working well. He is taking them as prescribed. He is quite excited about his new job, which he will start in a couple of days. 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 He would like to continue with his medications. Does not have any problem with the medications. He is aware that opioid medications can be problematic and development of [place] [address] [place] [address] PAIN MANAGEMENT CONSULTATION Name: NEREIDA MORTON Room: [facility]#: [id number] Admission: 01/05/19 Attend Phys: Tae Garcia MD Discharge: Date of : 59 Report #: [id number] dependence can develop. The patient is also aware that medications can become less effective secondary to development of tolerance. Overall, he feels things are going well. He would like to have his medications renewed. A script for his medications has been renewed for morphine sulfate extended release 15 mg 1 p.o. b.i.d. and for morphine sulfate immediate release 15 mg 1 p.o. b.i.d. We would like to thank you for letting us participate in his care. We hope he continues to improve. By: [id number]. Junior Garcia MD /nt
== END ==
LOC: M.PC 04:43
DX: G43.909 Migraine, unspecified, not intractable, without status migrainosus (principal); M25.512 Pain in left shoulder; I10 Essential (primary) hypertension; G47.33 Obstructive sleep apnea (adult) (pediatric); R73.03 Prediabetes; F32.9 Major depressive disorder, single episode, unspecified; E03.9 Hypothyroidism, unspecified; E78.5 Hyperlipidemia, unspecified; N36.8 Other specified disorders of urethra; H35.30 Unspecified macular degeneration; C61 Malignant neoplasm of prostate

== ENCOUNTER → 2019-02-02 | Outpatient (CLI) | payer BC, MEDICARE ==
--- NOTE | ~2019-02-02 | PAINCON ---
[facility] [address] [place] [address] PAIN MANAGEMENT CONSULTATION Name: NEREIDA MORTON Room: [facility] GONZALEZ SolorioEmmett#: [id number] Admission: 02/02/19 Attend Phys: Tae Garcia MD Discharge: Date of : 59 Report #: [id number] THIS REPORT FOR: //name// CC: Tae Issa DATE OF SERVICE: 02/02/2019 PRIMARY CARE PHYSICIAN: Dr. Wilmer Issa. CHIEF COMPLAINT: Here for medication renewal, still having some pain in the low back as well as some left shoulder and the problematic headaches. HISTORY: The patient is a 63-year-old gentleman who has been followed in the pain clinic because of chronic pain involving his head. He has had chronic headaches for quite a number of years. He moved to [place] to be with his who works at [employer]. He is having some low back pain as well as some left shoulder pain. He is still going to physical therapy involving his left shoulder. He did have some shoulder surgery. Continues to note some soreness in this area. Overall, he rates his pain as a 2/10. States that the pain is more of soreness rather than a severe pain. He feels that his morphine medications continue to be helpful. ALLERGIES: No known drug allergies. CURRENT MEDICATIONS: Synthroid 88 mcg, morphine 15 mg immediate release, 15 mg extended release for a total of 60 mEq of morphine equivalents daily. PAIN CLINIC ASSESSMENT/PQRS: 1. History of osteoarthritis. The patient has some arthritic changes in his low back. Has some changes in his shoulders and recently had surgery on his left shoulder. He complains of some pain and discomfort in his knee. He is not being treated for rheumatoid arthritis. 2. Height 5 feet 6 inches, weight 197 pounds, BMI 31.9. 3. Vital signs: Blood pressure 122/78, heart rate 75, respiratory rate 16, room air saturation 97%, temperature 98.5. 4. Pain intensity 01/10. 5. Fall history: The patient has not fallen in the last 3 months. 6. Blood thinner. The patient is not on a blood thinning medication. 7. Hypertension. The patient is not being treated for hypertension. 8. Opioid greater than 6 weeks. The patient received some medication through one source, the pain clinic. 8. Risk assessment tool, low for opioid use. 9. Functional assessment tool. 10. Recreational drug use. The patient denies use of recreational drugs. 11. Tobacco: The patient denies use of tobacco, stopped in 1996[place] [address] PAIN MANAGEMENT CONSULTATION Name: NEREIDA MORTON Room: [facility]#: [id number] Admission: 02/02/19 Attend Phys: Tae Garcia MD Discharge: Date of : 59 Report #: [id number] 25-year history of smoking. 12. Alcohol: The patient denies use of alcoholic beverages other than on a social basis. PHYSICAL EXAMINATION: GENERAL: The patient is a well-developed, well-nourished white male. Appears his stated age. He is alert and oriented x 3. His affect is appropriate. Speech is fluent. HEENT: Normocephalic, atraumatic. Extraocular eye muscles intact. Sclerae nonicteric. Mucous membranes moist. The patient continues with the frontal headache that he has had ongoing for a number of years. NECK: Without adenopathy or JVD. HEART: Regular rate. S1, S2. LUNGS: Clear to auscultation without rhonchi or rales. EXTREMITIES: Upper extremity muscle strength is judged to be 5/5 for the major muscle groups in the upper extremity. Continues to perform physical therapy involving his left shoulder. Does walk with use of a cane. Rates his muscle strength as 5-/5 for the major muscle groups in the lower extremity. Has an antalgic gait. IMPRESSION: 1. Chronic migraine headaches greater than 15 years' duration, nonspecific migraine like headaches of unknown etiology. 2. Left shoulder pain status post shoulder repair of the labrum. 3. Gout. 4. Hypertension. 5. Borderline diabetes. 6. Obstructive sleep apnea with allergic rhinitis. 7. History of skin cancer/melanoma. 8. Painful left breast mass removed. 9. Chronic obstructive pulmonary disease. 10. Depression. 11. Hypothyroidism. 12. Orthostatic hypotension. 13. Hyperlipidemia. 14. Right urethral dilation/duplication. 15. Macular degeneration, left eye. 16. Prostate cancer with mets to the colon, status post chemotherapy, found to be cancer free at this juncture. RECOMMENDATION: We will continue with the patient's current medication of morphine immediate release as well as morphine extended release 15 mg of each a.m. and p.m. for a total of 60 morphine equivalents. The patient feels that the medication continues to be helpful. He continues to exercise left arm, which has undergone surgery. Finds it is still sore. We explained to him that oftentimes it takes up to a year for surgery to settle down. Hopefully, [place] [address] PAIN MANAGEMENT CONSULTATION Name: NEREIDA MORTON Carol Room: [facility]#: [id number] Admission: 02/02/19 Attend Phys: Tae Garcia MD Discharge: Date of : 59 Report #: [id number] continue to settle down over time. We would like to thank you for letting us participate in his care. We hope he continues to improve. A script for morphine sulfate 15 mg extended release (MS Contin) has been released. The patient will take morphine sulfate IR immediate release 15 mg b.i.d. By: [id number]. Junior Garcia MD /DIANE
== END ==
LOC: M.PC 04:27
DX: G43.809 Other migraine, not intractable, without status migrainosus (principal); M25.512 Pain in left shoulder; M10.9 Gout, unspecified; I10 Essential (primary) hypertension; G47.33 Obstructive sleep apnea (adult) (pediatric); J30.9 Allergic rhinitis, unspecified; C44.90 Unspecified malignant neoplasm of skin, unspecified; J44.9 Chronic obstructive pulmonary disease, unspecified; F32.9 Major depressive disorder, single episode, unspecified; E03.9 Hypothyroidism, unspecified; E78.5 Hyperlipidemia, unspecified; H35.30 Unspecified macular degeneration; C61 Malignant neoplasm of prostate; Z79.899 Other long term (current) drug therapy

== ENCOUNTER → 2019-03-09 | Outpatient (CLI) | payer BC, MEDICARE ==
[~2019-03-09] MED LIST changes: +TORADOL 10 MG T10 MG PO
--- NOTE | ~2019-03-09 | PAINCON ---
[facility] [address] [place] [address] PAIN MANAGEMENT CONSULTATION Name: NEREIDA MORTON Room: [facility] GONZALEZ Sheridan#: [id number] Admission: 03/09/19 Attend Phys: Tae Garcia MD Discharge: Date of : 59 Report #: [id number] THIS REPORT FOR: //name// CC: Tae Issa DO DATE OF SERVICE: 03/09/2019 CHIEF COMPLAINT: Here for medication renewal. FOLLOWUP HISTORY: The patient is a 63-year-old gentleman who has been seen in the pain clinic because of chronic pain involving his head. He has had chronic pain involving his head with headaches for many years. Again, as you may recall, he moved to [place]. His works at [employer]. He has some pain in his left shoulder. He has undergone physical therapy. He has had shoulder surgery as well. He rates his pain today as 5/10. He is having some headache pain. He has some low back discomfort as well. He notes increased pain with activity. Walking, sitting, standing, climbing stairs is problematic as well. He feels that his medications continue to help with his feeling of well-being. 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 He feels that his morphine medication continues to be helpful. He did take Toradol injections at his last pain clinic. This was [place] another state. He states that he was given Toradol injections. He will take 30 mg with the onset of a migraine headache. He was wondering whether or not this would be an option. ALLERGIES: No known drug allergies. CURRENT MEDICATIONS: Synthroid 88 mcg, morphine 15 mg immediate release, 15 mg extended release morphine for a total of 60 mEq of morphine daily. PAIN CLINIC ASSESSMENT/PQRS: 1. History of osteoarthritis. The patient has some arthritic changes in his low back. He has some changes in his shoulders and recently had shoulder surgery on the left side. He has noted some improvement. He has not been treated for rheumatoid arthritis. 2. Height 5 feet 6 inches, weight 201 pounds, BMI 32.5. 3. Vital Signs: Blood pressure 125/79, heart rate 88, respiratory rate 16, room air saturation 98%. 4. Pain intensity is 5/10. 5. Fall history: The patient has not fallen in the last 3 months. 6. Blood thinner. The patient is not on a blood thinning medication. 7. Hypertension. The patient is not being treated for hypertension. 8. Opioids greater than 6 weeks. The patient has received his medications through [facility] source[facility]. 9. Risk assessment tool, [place] [address] PAIN MANAGEMENT CONSULTATION Name: NEREIDA MORTON Room: [facility]#: [id number] Admission: 03/09/19 Attend Phys: Tae Garcia MD Discharge: Date of : 59 Report #: [id number] 10. Functional assessment tool. 11. Recreational drug use. The patient denies use of recreational drugs. 12. Tobacco: The patient denies use of tobacco. He stopped smoking in 1996. He has a history of 25 years smoking. 13. Alcohol: The patient denies use of alcoholic beverages other than on a social basis. PHYSICAL EXAMINATION: GENERAL: The patient is well-developed, well-nourished white male. Appears his stated age. He is alert and oriented x 3. His affect is appropriate. Speech is fluent. HEENT: Normocephalic, atraumatic. Extraocular eye muscles intact. Sclerae nonicteric. The patient has pain and discomfort in the upper portion of his head. He has been having headaches in the frontal area for years. NECK: Without adenopathy or JVD. HEART: Regular S1, S2. LUNGS: Clear to auscultation without rhonchi. EXTREMITIES: Upper extremity muscle strength judged to be 5/5. The patient continues to apply physical therapy techniques to his left shoulder. He walks with use of a cane. He has muscle strength 5-/5 in the major groups in the lower extremity. He has an antalgic gait. IMPRESSION: 1. Chronic migraine headaches, status post headaches greater than 15 years' duration, nonspecific of unknown etiology. 2. Left shoulder pain, status post shoulder repair of the labrum. 3. Gout. 4. Hypertension. 5. Borderline diabetes. 6. Obstructive sleep apnea with allergic rhinitis. 7. History of skin cancer/melanoma. 8. Painful left breast mass removed in the past. 9. Chronic obstructive pulmonary disease. 10. Depression. 11. Hypothyroidism. 12. Orthostatic hypotension. 13. Hyperlipidemia. 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 15. Macular degeneration, left eye. 16. Prostate cancer with metastases to the colon - status post chemotherapy, cancer-free at this juncture. RECOMMENDATIONS: We discussed treatment options with the patient. At this juncture, we will continue with his medications. A script for his medications has been rewritten. He will continue with morphine extended release 15 mg tablets daily as well as morphine immediate release tablets daily. He will be [address] [place] [address] PAIN MANAGEMENT CONSULTATION Name: NEREIDA MORTON Room: [facility]#: [id number] Admission: 03/09/19 Attend Phys: Tae Garcia MD Discharge: Date of : 59 Report #: [id number] given a script for Toradol 10 mg tablets. He has been given a script for 60 tablets. He will take these tablets in place of the tramadol injections. He states that he use to use that a few times a year and what this was provided by his pain care doctor in the previous state. We explained to him that at this juncture, one who has prescribed Toradol injections by that method. Should his pain become quite problematic he would then go to the Emergency Room or seek a medical person to provide and inject the Toradol 30 mg IM. By: [id number]. Junior Garcia MD /nt
== END ==
LOC: M.PC 05:00
DX: G43.809 Other migraine, not intractable, without status migrainosus (principal); I10 Essential (primary) hypertension; G89.29 Other chronic pain; J44.9 Chronic obstructive pulmonary disease, unspecified; F32.9 Major depressive disorder, single episode, unspecified; E03.9 Hypothyroidism, unspecified; E78.5 Hyperlipidemia, unspecified; Z85.46 Personal history of malignant neoplasm of prostate; Z79.899 Other long term (current) drug therapy; Z85.038 Personal history of other malignant neoplasm of large intestine; Z79.891 Long term (current) use of opiate analgesic

== ENCOUNTER → 2019-04-13 | Outpatient (CLI) | payer BC, MEDICARE ==
--- NOTE | 2019-04-29 01:32 | PAINCON ---
[facility] [place] [address] [place] [address] PAIN MANAGEMENT CONSULTATION Name: NEREIDA MORTON Room: [facility] SILAS Arvin#: [id number] Admission: 04/13/19 Attend Phys: Tae Garcia MD Discharge: Date of : 59 Report #: [id number] THIS REPORT FOR: //name// CC: Tae Issa DO DATE OF SERVICE: 04/13/2019 CHIEF COMPLAINT: Chronic headaches. HISTORY: The patient is a 63-year-old gentleman who has been followed in the Pain Clinic. As you recall, has had years of chronic headache pain. He has been on his current medical regimen for a number of years. He came to the [facility] following his . She works at [employer]. He has undergone physical therapy. He has pain, had surgery on his shoulder. Notes that his pain today is a 2/10. He has pain in the left shoulder as well as in the low back area. He has headaches continue as they have in the past. The back pain appears to be getting better. Feels his medications could have contributed to his ability to be more active and move better. He has been having a "pretty good month." He will be seeing his urologist in the near future. As you may recall, he has a history of prostate cancer. He has returned today for renewal of his medications. ALLERGIES: No known drug allergies. MEDICATIONS: Synthroid 88 mcg, morphine 15 mg immediate release, 15 mg extended release morphine for a total of 60 mEq of morphine daily. PAIN CLINIC ASSESSMENT/PQRS: 1. History of osteoarthritis. The patient has some arthritic changes in his low back. Also, has some changes in his left shoulder. He has undergone surgery. He is not being treated for rheumatoid arthritis. 2. Height 5 feet 6 inches, weight 197 pounds, BMI is 32. 3. Vital Signs: Blood pressure 133/72, heart rate 74, respiratory rate 16, room air saturation 95%, temperature 98.7. 4. Pain intensity, 01/10. 5. Fall history: The patient has not fallen in the last 3 months. 6. Blood thinner. The patient is not on a blood thinning medication. 7. Hypertension. The patient is not being treated for hypertension. 8. Opioids greater than 6 weeks. The patient [facility]. 9. Risk assessment tool, low for opioid use. 10. Functional assessment tool. 11. Recreational drug use. The patient denies use of recreational drugs. 12. Tobacco: The patient denies use of tobacco, stopped smoking in 1996, [place] [address] PAIN MANAGEMENT CONSULTATION Name: NEREIDA MORTON [id number] Admission: 04/13/19 Attend Phys: Tae Garcia MD Discharge: Date of : 59 Report #: [id number] 25-year history of smoking. 13. Alcohol. The patient denies use of alcoholic beverages from one more than a social basis. PHYSICAL EXAMINATION: GENERAL: The patient is a well-developed, well-nourished white male. Appears his stated age. He is alert and oriented x 3. His affect is appropriate. The patient has headache on the frontal area in the usual position, which has been problematic for years. NECK: Without adenopathy or JVD. HEART: Regular rate. S1, S2. LUNGS: Clear to auscultation without rhonchi or rales. EXTREMITIES: Upper extremity muscle strength judged to be 5/5 for the major muscle groups in the upper extremity on the right. The patient has a healing left shoulder. Walks with use of a cane. Muscle strength to the lower extremity judged to be 4+/5 for the major muscle groups in the lower extremity. Has an antalgic gait. IMPRESSION: 1. Chronic migraines and headaches, status post headache pain for greater than 15 years, has been worked up with nonspecific etiology. 2. Left shoulder pain, status post left shoulder repair of the labrum. 3. Gout. 4. Hypertension. 5. Borderline diabetes. 6. Obstructive sleep apnea with allergic rhinitis. 7. History of skin cancer/melanoma. 8. Painful left breast mass removed in the past. 9. Chronic obstructive pulmonary disease. 10. Depression. 11. Hypothyroidism. 12. Orthostatic hypotension. 13. Hyperlipidemia. 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 15. Macular degeneration, left eye. 16. Prostate cancer and metastasis to the colon -- status post chemotherapy, cancer free at this juncture scheduled to follow up with his urologist. RECOMMENDATIONS: We discussed treatment options with the patient. At this juncture, things going reasonably well. He finds medications used are working well. He had no complications with the medications. He is aware that opioid medications can be problematic for some people. He takes his medication as prescribed. He is aware that a number of people have problems with these medications and has developed tolerance and less effective pain relief. He feels overall things are going well. He keeps his medications in a guarded area. We would like to continue with the medication [place] [address] PAIN MANAGEMENT CONSULTATION Name: NEREIDA MORTON Room: [facility]#: [id number] Admission: 04/13/19 Attend Phys: Tae Garcia MD Discharge: Date of : 59 Report #: [id number] continue to have a meaningful and productive life. A script for his medications of morphine 15 mg, MS Contin 1 p.o. b.i.d. as well as morphine 15 mg immediate release have been written. He will take one of these twice a day. He will call us if he has any concerns. We would like to thank you for letting us participate in his care. We hope he continues to improve. <ELECTRONICALLY SIGNED> By: Tae Garcia MD 04/29/19 0132 2019 [id number]. Junior Garcia MD /nt
== END ==
LOC: M.PC 07:14
DX: G43.909 Migraine, unspecified, not intractable, without status migrainosus (principal); M25.512 Pain in left shoulder; M10.9 Gout, unspecified; I10 Essential (primary) hypertension; G47.33 Obstructive sleep apnea (adult) (pediatric); N64.4 Mastodynia; C61 Malignant neoplasm of prostate; C78.5 Secondary malignant neoplasm of large intestine and rectum; J44.9 Chronic obstructive pulmonary disease, unspecified; E03.9 Hypothyroidism, unspecified; F32.9 Major depressive disorder, single episode, unspecified; E78.5 Hyperlipidemia, unspecified; I95.1 Orthostatic hypotension; H35.30 Unspecified macular degeneration; Z85.828 Personal history of other malignant neoplasm of skin

== ENCOUNTER → 2019-05-06 | Outpatient (CLI) | payer BC, MEDICARE ==
--- NOTE | ~2019-05-06 | PAINCON ---
[facility] [address] [place] [address] PAIN MANAGEMENT CONSULTATION Name: NEREIDA MORTON Room: [facility] GONZALEZ SolorioEmmett#: [id number] Admission: 05/06/19 Attend Phys: Tae Garcia MD Discharge: Date of : 59 Report #: [id number] THIS REPORT FOR: //name// CC: Tae Issa DATE OF SERVICE: 05/06/2019 PRIMARY CARE PHYSICIAN: Dr. Wilmer Issa. CHIEF COMPLAINT: Here for medication renewal. HISTORY: The patient is a 63-year-old gentleman who has been followed in the pain clinic. As you recall, he has many years of chronic headache pains. He moved to [place] to follow his . She works at [employer]. 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 He is thinking about moving to another job. He has been contacted by another association. He feels overall that things are going reasonably well. Rates his pain as a 2/10. He is increasing his activity. He is now able to ambulate without use of his cane. Feels his pain is between 75 and 90% better. He is working on decreasing the amount of tramadol that he takes. Overall, he feels things are going reasonably well and has returned today for renewal of his medication. ALLERGIES: No known drug allergies. CURRENT MEDICATIONS: Synthroid 88 mcg, morphine 15 mg immediate release, 15 mg extended release for a total of 60 mEq daily. PAIN CLINIC ASSESSMENT/PQRS: 1. The patient has some arthritic changes in his low back. He has some arthritic change in the left shoulder. He is not being treated for rheumatoid arthritis. 2. Height 5 feet 6 inches, weight 195 pounds, BMI is 31.5. 3. VITAL SIGNS: Blood pressure 131/78, heart rate 89, respiratory rate 16, room air saturation 96%, temperature 98.8. 4. Pain intensity 10. 5. Fall history: The patient has not fallen in the last 3 months. 6. Blood thinner. The patient is not on a blood thinning medication. 7. Hypertension. The patient is not being treated for hypertension. 8. Opioids greater than 6 weeks. The patient receives medication through the pain clinic. 9. Risk assessment tool, low for opioid use. 10. Functional assessment tool. 11. Recreational drug use. The patient denies use of recreational drugs. 12. Tobacco: The patient denies use of tobacco. The patient stopped smoking in 1996 and has a 45-[place] [address] PAIN MANAGEMENT CONSULTATION Name: MORTONNEREIDA Carol Room: [facility]#: [id number] Admission: 05/06/19 Attend Phys: Tae Garcia MD Discharge: Date of : 59 Report #: [id number] 13. Alcohol: The patient denies more than social drinking. PHYSICAL EXAMINATION: GENERAL: The patient is a well-developed, well-nourished white male. Appears his stated age. He is alert and oriented x 3. Affect is appropriate. Speech is fluent. The patient still has pain and discomfort in the frontal area of his head. NECK: Without adenopathy or JVD. HEART: Regular rate. ABDOMEN: Nontender. Bowel sounds present. CHEST: Clear to auscultation without rhonchi. EXTREMITIES: Upper extremity muscle strength judged to be 5/5 for the major muscle groups in the upper extremity. The patient has a healing left shoulder. Walking without a cane at this juncture. Notes some increased muscle strength in the lower extremity. IMPRESSION: 1. Chronic migraine headaches, status post-headache pain greater than 15 years with unknown etiology. 2. Left shoulder pain, status post left shoulder repair. 3. Gout. 4. Hypertension. 5. Borderline diabetes. 6. Obstructive sleep apnea with allergic rhinitis. 7. History of skin cancer/melanoma. 8. Painful left breast mass removed in the past. 9. Chronic obstructive pulmonary disease. 10. Depression. 11. Hypothyroidism. 12. Orthostatic hypotension. 13. Hyperlipidemia. 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 15. Macular degeneration, left eye. 16. Prostate cancer/metastases to the colon, status post chemotherapy treatment and at this juncture ____ followed by his urologist. He is cancer free at this juncture. RECOMMENDATIONS: We discussed treatment options with the patient. At this point, we will continue with his medications. He feels that his medications are helpful. He continues to try to wean down and uses the least amount of medication as possible. He is rating his pain as a 2/10. Feels that things are about 75-90% improved with his complex medical management. We will continue to manage his pain medication using the opioid medications, we will use tramadol as needed. The patient will call us if he has any concerns. We would like to thank you for letting us participate in his care. He is aware that opioid medications can be problematic. He is aware that over time, they can lose their [address] [address] PAIN MANAGEMENT CONSULTATION Name: NEREIDA MORTON Room: [facility] SILAS Arvin#: [id number] Admission: 05/06/19 Attend Phys: Tae Garcia MD Discharge: Date of : 59 Report #: [id number] effects and is secondary to development of tolerance. He does not feel that he is having any problems with his medications at all. By: [id number]. Junior Garcia MD /DIANE
== END ==
LOC: M.PC 05:31
DX: Z76.0 Encounter for issue of repeat prescription (principal); G43.909 Migraine, unspecified, not intractable, without status migrainosus; G89.29 Other chronic pain; M25.511 Pain in right shoulder; M10.9 Gout, unspecified; I10 Essential (primary) hypertension; G47.33 Obstructive sleep apnea (adult) (pediatric); J44.9 Chronic obstructive pulmonary disease, unspecified; E03.9 Hypothyroidism, unspecified; E78.5 Hyperlipidemia, unspecified; F32.9 Major depressive disorder, single episode, unspecified; Z85.46 Personal history of malignant neoplasm of prostate; Z79.899 Other long term (current) drug therapy

== ENCOUNTER → 2019-07-13 | Outpatient (CLI) | payer BC, MEDICARE ==
--- NOTE | ~2019-07-13 | PAINCON ---
[address] [address] PAIN MANAGEMENT CONSULTATION Name: NEREIDA MORTON Room: [facility] SILAS LyndseyEmmett#: [id number] Admission: 07/13/19 Attend Phys: Tae Garcia MD Discharge: Date of : 59 Report #: [id number] THIS REPORT FOR: //name// CC: Tae Issa DATE OF SERVICE: 07/13/2019 CHIEF COMPLAINT: Here for medications and things are going reasonably well. HISTORY: The patient is a 64-year-old gentleman. As you recall, he has a chronic history of headache pain. He has been using morphine to help control his pain for a number of years. He moved to [place] to be with his . She works for [employer]. He was involved in a new endeavor. It involves spiritual activities and bereavement. He is waiting for more legal papers which need to be signed to be put in place. Hopefully, they will be able to ramp up there new business. He has a history of prostate cancer. May have to have a prostatectomy in the future. ALLERGIES: No known drug allergies. MEDICATIONS: Synthroid 88 mcg, morphine 15 mg extended release for a total of 60 mg morphine equivalents daily. PAIN CLINIC ASSESSMENT AND PQRS: 1. The patient has some arthritic changes in his low back. Has some arthritic changes in left shoulder. He is not being treated for rheumatoid arthritis. 2. Height 5 feet 6 inches, weight 199 pounds, BMI is 32.8. 3. Vital signs: Blood pressure 138/75, heart rate 71, respiratory rate 16, room air saturation 98%, temperature 98.8. 4. Pain intensity 02/07. 5. Fall history: The patient has not fallen in the last 3 months. 6. Blood thinner. The patient is not on a blood thinning medication. 7. Hypertension. The patient is not being treated for hypertension. 8. Opioids greater than 6 weeks. The patient receives his opioid medications through one source, the pain clinic. 9. Risk assessment tool, low for opioid use. 10. Functional assessment tool. 11. Recreational drug use. The patient denies use of recreational drugs. 12. Alcohol: The patient drinks alcoholic beverages on a weekly basis. 13. Tobacco: The patient stopped smoking in 1996, had a 45-year smoking history. PHYSICAL EXAMINATION: GENERAL: The patient is a well-developed, well-nourished white male. Appears his stated age. He is alert and oriented x 3. [place] [address] PAIN MANAGEMENT CONSULTATION Name: NEREIDA MORTON Carol Room: [facility]#: [id number] Admission: 07/13/19 Attend Phys: Tae Garcia MD Discharge: Date of : 59 Report #: [id number] Speech is fluent. HEENT: Normocephalic, atraumatic. Extraocular eye muscles intact. Sclerae nonicteric. Mucous membranes are moist. NECK: Without adenopathy or JVD. The patient has pain in the frontal area. This has been problematic in this area for a number of years. HEART: Regular rate. S1, S2. ABDOMEN: Nontender. Bowel sounds present. CHEST: Clear to auscultation without rhonchi or rales. EXTREMITIES: Upper extremity muscle strength judged to be 5/5 for the major muscle groups in the upper extremity. The patient has a well-healed shoulder. The patient notes increased muscle strength. This has improved in the lower extremity. He is no longer walking with his cane. IMPRESSION: 1. Chronic migraine headaches, status post involvement of the frontal area of his head for greater than 15 years. Etiology remains an enigma. 2. Left shoulder pain, status post left shoulder repair. 3. Gout. 4. Hypertension. 5. Borderline diabetes. 6. Obstructive sleep apnea with allergic rhinitis. 7. History of skin cancer/melanoma. 8. Painful left breast mass removed in the past. 9. Chronic obstructive pulmonary disease. 10. Depression. 11. Hypothyroidism. 12. Orthostatic hypotension. 13. Hyperlipidemia. 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 15. Macular degeneration, left eye. 16. Prostate metastasis to the colon, status post chemotherapy and cancer free at this juncture, followed by his urologist. RECOMMENDATIONS: We discussed treatment options with the patient. At this juncture, he feels that his medications continue to be helpful. Continues to take medication as prescribed. We have had discussions regarding use of opioid medications. He is aware that 70,000 people last year as a result of opioid overdosing. He has taken the medication as prescribed. Keeps his medications in a guarded area. He feels that tramadol and morphine continue to be beneficial and able him to engage in activities of daily living with improved function. He is aware that opioid medications can cause addiction. Keeps his medications in a guarded area. We would like to thank you for letting us participate in his care. He will call [address] [address] PAIN MANAGEMENT CONSULTATION Name: NEREIDA MORTON Carol Room: [facility] GONZALEZ Sheridan#: [id number] Admission: 07/13/19 Attend Phys: Tae Garcia MD Discharge: Date of : 59 Report #: [id number] us if he has any concerns. We will continue with the patient's pain control using a complex medical regimen of opioids. By: [id number]. Junior Garcia MD /nt
== END ==
LOC: M.PC 05:09
DX: G43.909 Migraine, unspecified, not intractable, without status migrainosus (principal); M10.9 Gout, unspecified; M25.512 Pain in left shoulder; I10 Essential (primary) hypertension; E11.9 Type 2 diabetes mellitus without complications; G47.33 Obstructive sleep apnea (adult) (pediatric); J44.9 Chronic obstructive pulmonary disease, unspecified; F32.9 Major depressive disorder, single episode, unspecified; E03.9 Hypothyroidism, unspecified; E78.5 Hyperlipidemia, unspecified; I95.1 Orthostatic hypotension; H35.3120 Nonexudative age-related macular degeneration, left eye, stage unspecified; C61 Malignant neoplasm of prostate; C78.5 Secondary malignant neoplasm of large intestine and rectum; Z85.820 Personal history of malignant melanoma of skin; Z90.12 Acquired absence of left breast and nipple

== ENCOUNTER → 2019-08-10 | Outpatient (CLI) | payer BC, MEDICARE ==
[~2019-08-10] MED LIST changes: +FLOMAX0.4 MG PO
--- NOTE | ~2019-08-10 | PAINCON ---
[address] [address] PAIN MANAGEMENT CONSULTATION Name: NEREIDA MORTON Room: [facility] GONZALEZ Sheridan#: [id number] Admission: 08/10/19 Attend Phys: Tae Garcia MD Discharge: Date of : 59 Report #: [id number] THIS REPORT FOR: //name// CC: Tae Issa DATE OF SERVICE: 08/10/2019 CHIEF COMPLAINT: Continued chronic migraine headache pain and urinary tract infection. HISTORY: The patient is a 64-year-old gentleman, who has been followed in the pain clinic. As you recall for a number of years, he has had chronic pain, it involves his head. It is along the lateral portion of his temporal area. He notes that the pain can be more problematic at times. He has found that morphine continues to be the agent that has been most successful. He is excited about the new venture. The hospice clinic is being evaluated by the [facility]. They are in the final throws of getting the ____ the ground. He has been having some problem with chronic urinary tract infections. He has had surgery. He has had radiation seeds placed. At this point, he feels that they are finally getting the infection under control with use of antibiotics, steroids, and continued vigilance. CURRENT MEDICATIONS: Synthroid 88 mcg, morphine 15 mg extended release for a total of 60 mg daily. ALLERGIES: No known drug allergies. PAIN CLINIC ASSESSMENT AND PQRS: 1. The patient has some arthritic changes in his back. He has had some arthritic changes in his left shoulder. He is not being treated for rheumatoid arthritis. 2. Pain score is 2/10. 3. Fall history: The patient has not fallen in the last 3 months. 4. Blood thinner. The patient is not on a blood thinning medication. 5. Hypertension. The patient is not being treated for hypertension. 6. Opioids greater than 6 weeks. The patient [facility]. 7. Risk assessment tool, low for opioid use. 8. Functional assessment tool. 9. Recreational drugs. The patient denies use of recreational drugs. 10. Alcohol: The patient drinks alcoholic beverages on a weekly basis. 11. Tobacco: The patient stopped smoking in 1996, had a 45-year smoking history. PHYSICAL EXAMINATION: [place] [address] PAIN MANAGEMENT CONSULTATION Name: NEREIDA MORTON Room: [facility]#: [id number] Admission: 08/10/19 Attend Phys: Tae Garcia MD Discharge: Date of : 59 Report #: [id number] GENERAL: The patient is a well-developed, well-nourished white male. He appears his stated age. He is alert and oriented x 3. His affect is appropriate. Speech is fluent. He is upbeat. Height is 5 feet 6 inches, weight is 195 pounds, and BMI is 31.5. VITAL SIGNS: Blood pressure is 138/75, heart rate is 74, respiratory rate is 20, room air saturation is 98%, and temperature is 98.6. NECK: Without adenopathy or JVD. HEART: Regular rate. S1, S2. ABDOMEN: Nontender. Bowel sounds present. CHEST: Clear to auscultation without rhonchi or rales. EXTREMITIES: Upper extremity muscle strength is judged to be 5/5 for the major muscle groups in the upper extremity. The patient has a well-healed shoulder, status post shoulder surgery. Lower extremity muscle strength is judged to be 5/5 for the major muscle groups. The patient is no longer walking with a cane. IMPRESSION: 1. Chronic migraine headaches, status post involvement of the frontal area of his head for greater than 15 years, etiology remains an enigma. 2. Left shoulder pain, status post left shoulder repair. 3. Gout. 4. Hypertension. 5. Borderline diabetes. 6. Obstructive sleep apnea with allergic rhinitis. 7. History of skin cancer/melanoma. 8. Painful left breast mass removed in the past. 9. Chronic obstructive pulmonary disease. 10. Depression. 11. Hypothyroidism. 12. Orthopedic hypotension. 13. Hyperlipidemia. 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 15. Macular degeneration, left eye. 16. 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 17. History of urinary tract infections. RECOMMENDATIONS: We have discussed treatment options with the patient. We will continue with the patient's medications. He feels that they are helpful. He is excited about the new venture. They need to be evaluated by the state. Things are going well from that vantage point. He continues to have pain and discomfort, which has been problematic for the last 15 years. He feels that the morphine medication is helpful. We will continue controlling his painful condition using opioid medications. [address] [place] [address] PAIN MANAGEMENT CONSULTATION Name: NEREIDA MORTON Room: [facility]#: [id number] Admission: 08/10/19 Attend Phys: Tae Garcia MD Discharge: Date of : 59 Report #: [id number] We would like to thank you for letting us to participate in his care. We hope he continues to improve. By: [id number]. Junior Garcia MD /PMT
== END ==
LOC: M.PC 04:50
DX: G43.909 Migraine, unspecified, not intractable, without status migrainosus (principal); M19.012 Primary osteoarthritis, left shoulder; M10.9 Gout, unspecified; G47.33 Obstructive sleep apnea (adult) (pediatric); J44.9 Chronic obstructive pulmonary disease, unspecified; E03.9 Hypothyroidism, unspecified; E78.5 Hyperlipidemia, unspecified; F32.9 Major depressive disorder, single episode, unspecified

== ENCOUNTER → 2019-09-07 | Outpatient (CLI) | payer BC, MEDICARE ==
--- NOTE | 2019-09-22 09:09 | PAINCON ---
[facility] [address] [place] [address] PAIN MANAGEMENT CONSULTATION Name: NEREIDA MORTON Room: [facility] SILAS LyndseyEmmett#: [id number] Admission: 09/07/19 Attend Phys: Tae Garcia MD Discharge: Date of : 59 Report #: [id number] THIS REPORT FOR: //name// CC: Tae Issa DATE OF SERVICE: 09/07/2019 CHIEF COMPLAINT: Here for medications, things are going well. HISTORY: The patient is a 64-year-old gentleman who has been followed in the pain clinic. As you may recall, he has chronic headaches. He has returned today indicating that his medications continue to be efficacious. He is not having any problems with the medications. He rates his pain as a 3-4 today. He has pain that is radiating down into his low back. Also, has some pain and discomfort involving his left shoulder. He feels that the medications of MS Contin and morphine are beneficial. He notes the pain is worse with walking, sitting, standing, climbing stairs. It improves with use of relaxation and with his medications. Still walks with a cane. ALLERGIES: No known drug allergies. CURRENT MEDICATIONS: Synthroid 88 mcg, morphine 15 mg extended release for a total of 60 mg daily. PAIN CLINIC ASSESSMENT AND PQRS: 1. The patient has some arthritic changes in his back. He has some arthritic changes in left shoulder. He is not being treated for rheumatoid arthritis. 2. Height 5 feet 6 inches, weight 195 pounds, BMI is 31.4. 3. Vital Signs: Blood pressure 126/77, heart rate of 73, respiratory rate 16, room air saturation 98%, temperature 98.4. 4. Pain intensity 3-10. 5. Fall history: The patient has not fallen in the last 3 months. 6. Blood thinner. The patient is not on a blood thinning medication. 7. Hypertension. The patient is not being treated for hypertension. 8. Opioids greater than 6 weeks. The patient [facility]. 9. Risk assessment tool, low for opioid use. 10. Functional assessment tool. 11. Recreational drug use. The patient denies. 12. Alcohol. The patient denies except on a weekly basis. 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 13. Tobacco: The patient stopped smoking in 1996, had a 45 year smoking history. PHYSICAL EXAMINATION: GENERAL: The patient is a well-developed, well-[place] [address] PAIN MANAGEMENT CONSULTATION Name: NEREIDA MORTON Carol Room: [facility]#: [id number] Admission: 09/07/19 Attend Phys: Tae Garcia MD Discharge: Date of : 59 Report #: [id number] his stated age. He is alert and oriented x 3. His affect is appropriate. Speech is fluent. HEENT: Normocephalic, atraumatic. Extraocular eye muscles intact. Sclerae nonicteric. Mucous membranes are moist. NECK: Without adenopathy or JVD. HEART: Regular rate. ABDOMEN: Nontender. Bowel sounds present. CHEST: Clear to auscultation without rhonchi. EXTREMITIES: Upper extremity muscle strength judged to be 5/5 for the major muscle groups on the right upper extremity and 5-/5 for the left upper extremity. He has a well-healed scar on the shoulder. Lower extremity muscle strength judged to be 5-/5 for the major muscle groups. He is walking with a cane today. IMPRESSION: 1. Chronic migraine headaches, status post involvement of pain in the frontal area, which has been problematic greater than 15 years, etiology remains an enigma. 2. Left shoulder pain, status post left shoulder repair. 3. Gout. 4. Hypertension. 5. Borderline diabetes. 6. Obstructive sleep apnea with allergic rhinitis. 7. History of skin cancer/melanoma. 8. Painful left breast mass removed in the past. 9. Chronic obstructive pulmonary disease. 10. Depression. 11. Hypothyroidism. 12. Hyperlipidemia. 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 14. Macular degeneration, left eye. 15. 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 Continues to be followed by his urologist. 16. History of urinary tract infections. RECOMMENDATIONS: We discussed treatment options with the patient. At this juncture, we will continue with his medications. He finds the medications are helpful. He does not have any problems with the medications. He is aware that opioid medications can be helpful, but can be problematic in certain patients. He does not feel he is addicted. He has not shown any addictive behavior. He has been using the medication for greater than 15 years with no complications. We will continue with his opioid medications. A script for MS Contin 15 mg b.i.d. as well as morphine immediate release 15 mg b.i.d. have been provided. The patient will call us if he has any problems. [address] [address] PAIN MANAGEMENT CONSULTATION Name: NEREIDA MORTON Room: [facility] Marcelo.#: [id number] Admission: 09/07/19 Attend Phys: Tae Garcia MD Discharge: Date of : 59 Report #: [id number] We would like to thank you for letting us participate in his care. We hope he continues to improve. <ELECTRONICALLY SIGNED> By: Tae Garcia MD 09/22/19 0909 [id number]. Junior Garcia MD /[facility]
== END ==
LOC: M.PC 05:11
DX: G89.29 Other chronic pain (principal); R51 Headache; J44.9 Chronic obstructive pulmonary disease, unspecified; E03.9 Hypothyroidism, unspecified; E78.5 Hyperlipidemia, unspecified; G47.33 Obstructive sleep apnea (adult) (pediatric); I10 Essential (primary) hypertension; M10.9 Gout, unspecified; M25.512 Pain in left shoulder; R73.03 Prediabetes; H35.30 Unspecified macular degeneration

== ENCOUNTER → 2019-10-05 | Outpatient (CLI) | payer BC, MEDICARE ==
--- NOTE | 2019-10-11 13:25 | PAINCON ---
[facility] [address] [place] [address] PAIN MANAGEMENT CONSULTATION Name: NEREIDA MORTON Room: [facility] SILASFabricio Sheridan#: [id number] Admission: 10/05/19 Attend Phys: Tae Garcia MD Discharge: Date of : 59 Report #: [id number] THIS REPORT FOR: //name// CC: Tae Issa DO DATE OF SERVICE: 10/05/2019 CHIEF COMPLAINT: Here for medication renewal. "I had a really bad headache for about 3 days." HISTORY: The patient is a 64-year-old gentleman who has been followed in the pain clinic. He has chronic headaches. He has had this for many years. Over the weekend, he noticed a worsening of his pain. He states that the pain level della to the level that it threatened to cause him to seek medical help in the Emergency Room. He did not go. He states that headache was terrible. It is improved at this point. It is 4/10. Has some low back pain and left shoulder discomfort as well. He feels that his medications of morphine continue to be helpful. Notes that the pain is worse with activity, walking, sitting, standing and climbing stairs. He feels that going to sleep can be helpful with the pain. He did have some difficulty falling asleep because of the headache. It involves the left frontal and temporal area. This is the usual location of the pain. He did try ketorolac, the nonsteroidal anti-inflammatory medication. This usually helps the pain. It did not break it on this occasion. ALLERGIES: No known drug allergies. CURRENT MEDICATIONS: Synthroid 88 mcg, morphine 15 mg extended release and morphine immediate release for a total of 60 mg daily, use of the cream for the skin cancers on his head. PAIN CLINIC ASSESSMENT/PQRS: 1. The patient has some arthritic pain in his back. Has arthritic pain in his left shoulder. He is not being treated for rheumatoid arthritis. 2. Height 5 feet 6 inches, weight 198 pounds, BMI is 32. 3. Vital signs: Blood pressure is 146/62, heart rate 83, respiratory rate 16, room air saturation is 97, temperature 98.0. 4. Pain intensity 4/10. 5. Fall history: The patient has not fallen in the last 3 months. 6. Blood thinner. The patient is not on a blood thinning medication. 7. Hypertension. The patient is not being treated for hypertension. 8. Opioids greater than 6 weeks. The patient received medication from [facility]. 9. Risk assessment tool, low for opioid use. 10. [place] [address] PAIN MANAGEMENT CONSULTATION Name: NEREIDA MORTON Room: [facility] Sheridan#: [id number] Admission: 10/05/19 Attend Phys: Tae Garcia MD Discharge: Date of : 59 Report #: [id number] 11. Recreational drug use: The patient denies. 12. Alcohol: The patient drinks alcohol on a weekly basis in small amounts. 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 13. Tobacco: The patient stopped smoking in 1996 and had a 45 year smoking history. PHYSICAL EXAMINATION: GENERAL: The patient is a well-developed, well-nourished white male. He is alert and oriented x 3. His affect is appropriate. Speech is fluent. HEENT: Normocephalic, atraumatic. Extraocular eye muscles intact. Sclerae nonicteric. Mucous membranes are moist. SKIN: The patient's forehead and frontal area was somewhat blotchy today, looks as though he may have experienced some sun. NECK: Without adenopathy or JVD. HEART: Regular rate. ABDOMEN: Nontender. Bowel sounds present. CHEST: Without rhonchi or rales. EXTREMITIES: Upper extremity muscle strength 5/5 for the major muscle groups in the upper extremity. Right upper extremity 5-/5, left upper extremity is 5-/5. The patient has a well-healed scar of his shoulder. Lower extremity muscle strength 5-/5 for the major muscle groups in the upper extremity. The patient is walking with use of a cane. IMPRESSION: 1. Chronic headache pain involving the frontal area on the left, which has been problematic for greater than 15 years. Etiology remains an enigma. 2. Left shoulder pain status post left shoulder repair. 3. Gout. 4. Hypertension. 5. Borderline diabetes. 6. Sleep apnea with allergic rhinitis. 7. History of cancer/melanoma of the skin. 8. Painful left breast mass removed in the past. 9. Chronic obstructive pulmonary disease. 10. Depression. 11. Hypothyroidism. 12. Hyperlipidemia. 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 14. Macular degeneration, left eye. 15. Prostate metastases to the colon status post chemotherapy and he is cancer free at this juncture. Continues to be followed by his urologist. 16. History of urinary tract infections. RECOMMENDATION: We discussed treatment options with the patient. Risks and benefits of opioid medication were discussed. The patient is aware that opioid medications can become less effective over time. He has taken the medication as [facility] [address] [place] [address] PAIN MANAGEMENT CONSULTATION Name: NEREIDA MORTON Room: [facility]#: [id number] Admission: 10/05/19 Attend Phys: Tae Garcia MD Discharge: Date of : 59 Report #: [id number] prescribed. This medication enables him to stay gainfully employed and to function at a high level. He is taking the medication as prescribed. He does not show any signs of addiction. Keeps his medications locked up in a guarded area. He is aware that opioid medications have been associated with 70,000 deaths last year. He would like to continue with his medication and that it enables him to stay functional. We would like to thank you for letting us participate in his care. A script for morphine sulfate immediate release 15 mg 1 p.o. b.i.d. as well as morphine sulfate extended release 15 mg 1 p.o. b.i.d. has been issued as well for a total of 60 mg morphine daily. We would like to thank you for letting us participate in his care. We hope he continues to improve. <ELECTRONICALLY SIGNED> By: Tae Garcia MD 10/11/19 1325 [id number]. Junior Garcia MD /nt
== END ==
LOC: M.PC 05:04
DX: G89.29 Other chronic pain (principal); R51 Headache; M25.512 Pain in left shoulder; M10.9 Gout, unspecified; G47.30 Sleep apnea, unspecified; J30.9 Allergic rhinitis, unspecified; J44.9 Chronic obstructive pulmonary disease, unspecified; F32.9 Major depressive disorder, single episode, unspecified; E03.9 Hypothyroidism, unspecified; E78.5 Hyperlipidemia, unspecified; H35.30 Unspecified macular degeneration; N28.82 Megaloureter; Z85.820 Personal history of malignant melanoma of skin; Z87.440 Personal history of urinary (tract) infections; Z85.46 Personal history of malignant neoplasm of prostate; Z85.038 Personal history of other malignant neoplasm of large intestine; Z92.21 Personal history of antineoplastic chemotherapy

== ENCOUNTER → 2019-11-02 | Outpatient (CLI) | payer BC, MEDICARE ==
[~2019-11-02] MED LIST changes: +[UNRECOGNIZED DRUG - OTHER]; +[UNRECOGNIZED DRUG - REMARK]
--- NOTE | 2019-11-02 20:11 | PAINCON ---
[facility] [address] [place] [address] PAIN MANAGEMENT CONSULTATION Name: NEREIDA MORTON Room: [facility] GONZALEZ SolorioEmmett#: [id number] Admission: 11/02/19 Attend Phys: Tae Garcia MD Discharge: Date of : 59 Report #: [id number] THIS REPORT FOR: //name// CC: Tae Issa DATE OF SERVICE: 11/02/2019 CHIEF COMPLAINT: "Things are going reasonably well. I have had some increased low back pain and left shoulder pain." HISTORY: The patient is a 64-year-old gentleman who has been followed in the pain clinic. His primary pain involves that of his head. He has chronic headaches involves the lateral side of his left head. He feels that his medications are quite beneficial. They are helpful. Sometimes he notes and need to take ketorolac to help break his headache. Overall, things are going reasonably well and stable. He has had no complications with his medications. He has taken these for a number of years. He has been using a cream for skin cancer on his head. Has some left shoulder discomfort. Notes that walking, sitting, standing can be problematic. Overall, he feels that his pain is a 3/10. He denies any new falls. ALLERGIES: No known drug allergies. CURRENT MEDICATIONS: Synthroid 88 mcg, morphine 15 mg extended release and morphine immediate release, total opioid dose of 60 mg per day. Uses a cream on top of his head for skin cancers. PAIN CLINIC ASSESSMENT/PQRS: 1. The patient has some arthritic changes in his back, has arthritic changes in his shoulder. He is not being treated for rheumatoid arthritis. 2. Height 5 feet 6 inches, weight 200 pounds, BMI is 29/74, heart rate 72, respiratory rate 16, room air saturation 97%, temperature 97.9. 3. Pain intensity 02/07. 4. Fall history: The patient has not fallen in the last 3 months. 5. Blood thinner. The patient is not on a blood thinning medication. 6. Hypertension. The patient is not being treated for hypertension. 7. Opioids greater than 6 weeks. The patient [facility]. 8. Risk assessment tool, low for opioid use. 9. Functional assessment tool. 10. Recreational drug use: The patient denies. 11. Alcohol: The patient drinks alcoholic beverages on an occasional basis. 12. Tobacco: The patient stopped smoking in 1996, had a 45 [place] [address] PAIN MANAGEMENT CONSULTATION Name: MORTONNEREIDA Room: [facility]#: [id number] Admission: 11/02/19 Attend Phys: Tae Garcia MD Discharge: Date of : 59 Report #: [id number] PHYSICAL EXAMINATION: GENERAL: The patient is a well-developed, well-nourished white male. Appears his stated age. He is alert and oriented x 3. His affect is appropriate. Speech is fluent. HEAD, EYES, EARS, NOSE, AND THROAT: Normocephalic, atraumatic. Extraocular eye muscles intact. Has some pain and discomfort in the left side of his head. SKIN: The patient's forehead and frontal areas somewhat blotchy. The patient has been using cream for cancerous areas. NECK: Without adenopathy or JVD. HEART: Regular rate. ABDOMEN: Nontender. Bowel sounds present. CHEST: Without rhonchi or rales. EXTREMITIES: Upper extremity muscle strength 5-/5 for the major muscle groups in the upper extremity. Left muscle strength is somewhat diminished because of pain, right upper extremity is less problematic. The patient has a well-healed scar in his shoulder. Lower extremity muscles 5-/5 for the major muscle groups and lower extremity. The patient is not walking with a cane today. IMPRESSION: 1. Chronic headache pain involving the frontal area on the left, which has been problematic for greater than 15 years, etiology remains enigmatic. 2. Left shoulder pain, status post left shoulder repair. 3. Gout. 4. Hypertension. 5. Borderline diabetes. 6. Sleep apnea with allergic rhinitis. 7. History of cancer/melanoma of skin. 8. Painful left breast mass removed in the past. 9. Chronic obstructive pulmonary disease. 10. Depression. 11. Hypothyroidism. 12. Hyperlipidemia. 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 14. Macular degeneration, left eye. 15. 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 Continues to be followed by his urologist. 16. History of urinary tract infections. RECOMMENDATIONS: We discussed treatment options with the patient. At this juncture, we will continue with his medication. He feels that the MS Contin is helpful. He does still have pain at times in the lower back, which is almost completely resolved with his current medical regimen. When he has pain in his head, he notes sometimes it might be more problematic and requires ketorolac and more medications to help to settle this down. He is using his medication as prescribed. He does not have any problems. His sensorium is clear. He is able to think clearly. He would like to continue with his medications. A script for [address] [place] [address] PAIN MANAGEMENT CONSULTATION Name: NEREIDA MORTON Room: [facility]#: [id number] Admission: 11/02/19 Attend Phys: Tae Garcia MD Discharge: Date of : 59 Report #: [id number] his medications of MS Contin 15 mg 1 p.o. q.i.d. has been written. He will also continue with morphine immediate release 15 mg 1 p.o. b.i.d. We would like to thank you for letting us to participate in his care. We hope he continues to improve. <ELECTRONICALLY SIGNED> By: Tae Garcia MD 11/02/192010 0901 0940Fiordaliza. Junior Garcia MD /PMT
== END ==
LOC: M.PC 04:27
DX: M25.512 Pain in left shoulder (principal); R51 Headache; G89.29 Other chronic pain; I10 Essential (primary) hypertension; E11.9 Type 2 diabetes mellitus without complications; G47.30 Sleep apnea, unspecified; F32.9 Major depressive disorder, single episode, unspecified; E03.9 Hypothyroidism, unspecified; E78.5 Hyperlipidemia, unspecified; M10.9 Gout, unspecified; H35.30 Unspecified macular degeneration

== ENCOUNTER → 2019-12-02 | Outpatient (CLI) | payer BC, MEDICARE ==
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
== END ==
LOC: M.PC 08:40
DX: I10 Essential (primary) hypertension (principal); E11.9 Type 2 diabetes mellitus without complications; E03.9 Hypothyroidism, unspecified; E78.5 Hyperlipidemia, unspecified; F32.9 Major depressive disorder, single episode, unspecified; J44.9 Chronic obstructive pulmonary disease, unspecified

== ENCOUNTER → 2019-12-28 | Outpatient (CLI) | payer BC, MEDICARE ==
[~2019-12-28] MED LIST changes: +MOVANTIK25 MG PO; +PERCOCET 5-3251 EACH PO
--- NOTE | ~2019-12-28 | PAINCON ---
[facility] [address] [place] [address] PAIN MANAGEMENT CONSULTATION Name: NEREIDA MORTON Room: [facility] LyndseyLaraPavanLara#: [id number] Admission: 12/28/19 Attend Phys: Tae Garcia MD Discharge: Date of : 59 Report #: [id number] THIS REPORT FOR: //name// CC: Tae Issa DO DATE OF SERVICE: 12/28/2019 CHIEF COMPLAINT: Chronic migraine headaches. HISTORY: The patient is a 64-year-old gentleman who has been followed in the pain clinic because of chronic headaches. This has been problematic for greater than 15 years. He continues to have headaches, which are problematic. This week, his headache has been quite pronounced. He has had difficulty getting active. He has stayed in bed more than he wanted. Notes that the pain involves the lower portion of his back. Has pain radiating up into his head. The pain on the left side of his head has been described as terrible all week. Rates his pain as a 5/10. Has continued with his morphine 15 mg b.i.d. Still feels that the pain is still quite problematic. At this juncture, he would like to try another option. He has noticed some significant constipation. He did take one additional opioid medication. He notes that significantly caused him to have less mobile bowel movements. ALLERGIES: No known drug allergies. CURRENT MEDICATIONS: Synthroid 88 mcg; morphine 15 mg extended release and 15 mg immediate release, total of 60 mg per day; use of cream on top of his head for cancers. PAIN CLINIC ASSESSMENT AND PQRS: 1. The patient does have some arthritic changes in his back. He has pain in his shoulders. He is not being treated for rheumatoid arthritis. 2. Height 5 feet 6 inches, weight 200 pounds, BMI 32.4. 3. Vital Signs: Blood pressure 150/80, heart rate 81, respiratory rate 16, room air saturation 99%. 4. Pain intensity 04/09. 5. Fall history: The patient has not fallen in the last 3 months. 6. Blood thinner. The patient is not on a blood thinning medication. 7. Hypertension. The patient is not being treated for hypertension. 8. Opioids greater than 6 weeks. The patient received medication from one source, pain clinic. 9. Risk assessment tool, low for opioid use. 10. Functional assessment tool has been reviewed. 11. Drug use. The patient denies use of other drugs. 12. Alcohol. The patient denies use of alcoholic [place] [address] PAIN MANAGEMENT CONSULTATION Name: MORTONNEREIDA Room: [facility]#: [id number] Admission: 12/28/19 Attend Phys: Tae Garcia MD Discharge: Date of : 59 Report #: [id number] occasion. 13. Tobacco: The patient stopped smoking in 1996. Smoked 45 years. PHYSICAL EXAMINATION: GENERAL: The patient is a well-developed, well-nourished white male. Appears his stated age. He is alert and oriented x 3. His affect is appropriate. Speech is fluent. HEENT: Normocephalic, atraumatic. Extraocular eye muscles intact. Sclerae nonicteric. Mucous membranes are moist. The patient complains of intense pain rated at 5/10 on the left side of his head, associated with migraine headache. NECK: Without adenopathy or JVD. HEART: Regular rate. ABDOMEN: Nontender. Bowel sounds present. The patient is having some constipation and feelings of fullness. MUSCULOSKELETAL: The patient has some left shoulder pain. As you may recall, he had shoulder surgery. Increasing range of motion. EXTREMITIES: Lower extremity muscle strength judged to be 5-/5 for the major muscle groups in the lower extremity. The patient has walked with a cane in the past. IMPRESSION: 1. Chronic headache involving the frontal areas on the left side. This has been more problematic and has been problematic for 15 years. Notes that it is really painful this past week. 2. Left shoulder. The patient is status post left shoulder repair. 3. Gout. 4. Hypertension. 5. Borderline diabetes. 6. Sleep apnea and allergic rhinitis. 7. History of cancer/melanoma of skin. 8. Painful left breast mass removed in the past. 9. Chronic obstructive pulmonary disease. 10. Depression. 11. Hypothyroidism. 12. Hyperlipidemia. 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 14. Macular degeneration, left eye. 15. 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 16. History of urinary tract infection. RECOMMENDATIONS: We discussed treatment options with the patient. At this juncture, we will provide the patient with Percocet additional 5 mg daily to try and help with the worsening of this migraine-type headache. He will take the medication in conjunction with his usual morphine. He will call us if he has any problems. [address] [address] PAIN MANAGEMENT CONSULTATION Name: NEREIDA MORTON [facility] [id number] Admission: 12/28/19 Attend Phys: Tae Garcia MD Discharge: Date of : 59 Report #: [id number] We would like to thank you for letting us participate in his care. He is aware that opioid medications can become less effective as time goes on. We will have the patient try Movantik. He has noticed increased problems with constipation. This medication is primarily helpful for those who have noticed an increased amount of constipation associated with opioid use. We would like to thank you for letting us participate in his care. We hope he continues to improve. By: [id number]. Junior Garcia MD /nt
== END ==
LOC: M.PC 03:32
DX: G43.909 Migraine, unspecified, not intractable, without status migrainosus (principal); M10.9 Gout, unspecified; I10 Essential (primary) hypertension; E11.9 Type 2 diabetes mellitus without complications; J44.9 Chronic obstructive pulmonary disease, unspecified; F32.9 Major depressive disorder, single episode, unspecified; E78.5 Hyperlipidemia, unspecified; E03.9 Hypothyroidism, unspecified; H35.30 Unspecified macular degeneration

== ENCOUNTER → 2020-01-25 | Outpatient (CLI) | payer BC, MEDICARE ==
[~2020-01-25] MED LIST changes: +ALLOPURINOL 10100 M2 PO; +LIPITOR20 MG PO
--- NOTE | 2020-02-15 08:57 | PAINCON ---
[address] [address] PAIN MANAGEMENT CONSULTATION Name: MORTONNEREIDA D Room: [facility] GONZALEZ Sheridan#: [id number] Admission: 01/25/20 Attend Phys: Tae Garcia MD Discharge: Date of : 59 Report #: [id number] THIS REPORT FOR: //name// cc: Wilmer Issa Vincent R. DO ~ THIS REPORT FOR: //name// CC: Tae Issa DO DATE OF SERVICE: 01/25/2020 CHIEF COMPLAINT: Continued chronic headache. HISTORY: The patient is a 64-year-old gentleman who has been followed in the pain clinic. He suffers from chronic headaches. This has been problematic for about the last 15 years. He rates his pain as a 4/10 today. It involves the left frontal area. It is consistently in this portion of his head. He feels that his medications are helpful. He feels that the morphine medications continue to be helpful. He would like to have them renewed. Does not have any new bowel or bladder dysfunction. Keeps his medications in a guarded area. ALLERGIES: No known drug allergies. CURRENT MEDICATIONS: Synthroid 88 mcg, morphine 15 mg extended release and 15 mg immediate release daily for a total of 60 mg, use of a cream on top of his head for cancer prevention. PAIN CLINIC ASSESSMENT AND PQRS: 1. The patient does have some arthritic changes in his back. Has pain in his shoulders. He is not being treated for rheumatoid arthritis. 2. Height 5 feet 6 inches, weight 207 pounds, and BMI is 33.4. 3. Vital signs: Blood pressure 119/69, heart rate 87, respiratory rate 16, room air saturation 95%, and temperature 97.4. 4. Pain intensity 4/10. 5. Fall history: The patient has not fallen in the last 3 months. 6. Blood thinner: The patient is not on a blood thinning medication. 7. Hypertension: The patient is not being treated for hypertension. 8. Opioids greater than 6 weeks: The patient received medication from [facility]. 9. Risk assessment tool: Low for opioid use. 10. Functional assessment tool has been reviewed. 11. Drug use: The patient denies use of recreational drugs. 12. Alcohol: The patient denies use of alcoholic beverages. 13. Tobacco: Patient stopped smoking in 1996. Has a smoking history of [address] [place] [address] PAIN MANAGEMENT CONSULTATION Name: NEREIDA MORTON Room: [facility]#: [id number] Admission: 01/25/20 Attend Phys: Tae Garcia MD Discharge: Date of : 59 Report #: [id number] years. PHYSICAL EXAMINATION: GENERAL: The patient is a well-developed, well-nourished white male. Appears his stated age. He is alert and oriented x 3. His affect is appropriate. Speech is fluent. HEENT: Normocephalic, atraumatic. Extraocular eye muscles intact. Sclerae nonicteric. Mucous membranes are moist. The patient has pain, which he describes as 4/10 on the left side of his head associated with his migraine headaches. NECK: Without adenopathy or JVD. HEART: Regular rate. ABDOMEN: Nontender. Bowel sounds present. MUSCULOSKELETAL: The patient has some discomfort in his left shoulder. Increasing range of motion of the left shoulder, status post surgery on the left shoulder. EXTREMITIES: Lower extremity muscle strength judged to be 5-/5 for the major muscle groups of lower extremity. The patient has walked with a cane. IMPRESSION: 1. Chronic headache involving the frontal area of the left side, which has been problematic for the last 15 years, improves with his current medical regimen. 2. Left shoulder pain improved after left shoulder repair. 3. Gout. 4. Hypertension. 5. Borderline diabetes. 6. Sleep apnea and allergic rhinitis. 7. History of cancer/melanoma of skin. 8. Painful left breast mass removed in the past. 9. Chronic obstructive pulmonary disease. 10. Depression. 11. Hypothyroidism. 12. Hyperlipidemia. 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 14. Macular degeneration, left eye. 15. 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 16. History of urinary tract infections. RECOMMENDATIONS: We discussed treatment options with the patient. At this juncture, we will continue with his medications. He feels that the medications are working reasonably well. He is having some pain in the low back area. Has pain on the left side of his temporal area. Notes that pain is worse when he is sitting, walking, standing and with certain activities. We will continue with his morphine extended release. We will also continue with morphine immediate release. A script for morphine ER 15 mg 1 p.o. b.i.d. has been written. [facility] [address] [place] [address] PAIN MANAGEMENT CONSULTATION Name: NEREIDA MORTON Room: [facility]#: [id number] Admission: 01/25/20 Attend Phys: Tae Garcia MD Discharge: Date of : 59 Report #: [id number] patient will also continue with morphine 15 mg 1 p.o. b.i.d. for immediate release. He will call us if he has any concerns. He keeps his medications in a guarded area. He is aware that opioid medications can become less effective over time. He does not show any signs of addiction. We would like to thank you for letting us participate in his care. We hope he continues to improve. <ELECTRONICALLY SIGNED> By: Tae Garcia MD 02/15/20 [id number]. Junior Garcia MD /nt
== END ==
LOC: M.PC 03:59
DX: R51 Headache (principal); M25.512 Pain in left shoulder; M10.9 Gout, unspecified; I10 Essential (primary) hypertension; G47.30 Sleep apnea, unspecified; E78.5 Hyperlipidemia, unspecified; E03.9 Hypothyroidism, unspecified; F32.9 Major depressive disorder, single episode, unspecified; J44.9 Chronic obstructive pulmonary disease, unspecified; R73.03 Prediabetes; H35.30 Unspecified macular degeneration; C61 Malignant neoplasm of prostate; C78.5 Secondary malignant neoplasm of large intestine and rectum; F11.20 Opioid dependence, uncomplicated; Z85.820 Personal history of malignant melanoma of skin; Z92.21 Personal history of antineoplastic chemotherapy; Z87.440 Personal history of urinary (tract) infections; Z79.899 Other long term (current) drug therapy; Z87.891 Personal history of nicotine dependence

== ENCOUNTER → 2020-02-22 | Outpatient (CLI) | payer BC, MEDICARE ==
--- NOTE | 2020-03-01 08:25 | PAINCON ---
[facility] [address] [place] [address] PAIN MANAGEMENT CONSULTATION Name: MORTONNEREIDA Room: [facility] GONZALEZ Sheridan#: [id number] Admission: 02/22/20 Attend Phys: Tae Garcia MD Discharge: Date of : 59 Report #: [id number] THIS REPORT FOR: //name// cc: Wilmer Issa Vincent R. DO ~ THIS REPORT FOR: //name// CC: Tae Issa DO DATE OF SERVICE: 02/22/2020 CHIEF COMPLAINT: Medicine still helpful. HISTORY: The patient is a 64-year-old gentleman who has been followed in the pain clinic. As you may recall, he still suffers from chronic headaches. This has been going on for greater than 15 years. Feels that his medications at this point of morphine continue to be efficacious. He has pain, which continues on the left temporal area. He did have some pain in the low back area, which has somewhat resolved. Notes an improvement in the pain with rest. He is doing less. The COVID-19 infection continues to rage. He is staying socially isolated as directed by the government. ALLERGIES: No known drug allergies. CURRENT MEDICATIONS: Synthroid 88 mcg, morphine 15 mg extended release, 15 mg immediate release morphine. The patient uses a total of 60 mg morphine daily. The patient uses a cream on top of his head for cancer prevention. PAIN CLINIC ASSESSMENT AND PQRS: 1. The patient does have some arthritic changes in his back. Has pain in his shoulders. He is not being treated for rheumatoid arthritis. 2. Height 5 feet 6 inches, weight 210 pounds, BMI is 34.1. 3. Vital signs: Blood pressure 133/75, heart rate 80, respiratory rate 16, room air saturation 96%, temperature 97.2. 4. Pain intensity 3/10. 5. Fall history: The patient has not fallen in the last 3 months. 6. Blood thinner: The patient is not on a blood thinning medication. 7. Hypertension: The patient is not being treated for hypertension. 8. Opioids greater than 6 weeks: The patient receives medication from one source, the pain clinic. 9. Risk assessment tool: Low for opioid use. 10. Functional assessment tool: Reviewed. 11. Drugs: The patient denies use of recreational drugs. 12. Alcohol: The patient [place] [address] PAIN MANAGEMENT CONSULTATION Name: NEREIDA MORTON Room: [facility]#: [id number] Admission: 02/22/20 Attend Phys: Tae Garcia MD Discharge: Date of : 59 Report #: [id number] 13. Tobacco: The patient stopped smoking in 1996. Smoking history of 45 years. PHYSICAL EXAMINATION: GENERAL: The patient is a well-developed, well-nourished white male. Appears his stated age. He is alert and oriented x 3. His affect is appropriate. Speech is fluent. HEENT: Normocephalic, atraumatic. Extraocular eye muscles intact. Sclerae nonicteric. Mucous membranes are moist. The patient has pain and discomfort on the left side of his temporal area, rated as a 3/10. NECK: Without adenopathy or JVD. HEART: Regular rate. ABDOMEN: Nontender. Bowel sounds present. MUSCULOSKELETAL: The patient with some discomfort of his left shoulder, increasing the pain as he increases the range of motion in his shoulder. He is status post surgery on the left shoulder. EXTREMITIES: Lower extremity muscle strength judged to be 5/5 for the major muscle groups in the lower extremity. The patient is walking without a cane. IMPRESSION: 1. Chronic headache involving the left frontal area, which has been problematic for the last 15 years, and stable with his current regimen. 2. Left shoulder pain improved after left shoulder repair. 3. Gout. 4. Hypertension. 5. Borderline diabetes. 6. Sleep apnea and allergic rhinitis. 7. History of cancer/melanoma of skin. 8. Chronic obstructive pulmonary disease. 9. Depression. 10. Hypothyroidism. 11. Hyperlipidemia. 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 13. Macular degeneration, left eye. 14. 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 15. History of urinary tract infections. RECOMMENDATIONS: We discussed treatment options with the patient. At this juncture, we will continue with his medications. He feels that the medications continue to be helpful. He has pain, which is in the temporal area. He also suffers from migraines. He feels his medications of morphine and morphine sulfate have been beneficial. He was given morphine 15 mg for both the short-acting and long-acting medication. He states that he had a conversation with the pharmacist and they hope to make sure that this dispensation is correct. [address] [place] [address] PAIN MANAGEMENT CONSULTATION Name: NEREIDA MORTON [facility] [id number] Admission: 02/22/20 Attend Phys: Tae Garcia MD Discharge: Date of : 59 Report #: [id number] ACTIVITY: The patient notes that sitting, standing, walking, and climbing stairs can be problematic. He realizes that opioid medications can become less effective over time due to development of tolerance. He feels that his medications are helpful. Would like to continue with the medication. A script for his medications of morphine sulfate 15 mg slow extended release will be taken 1 tablet b.i.d. He will also continue with morphine immediate release 15 mg for a total of 60 mg of morphine per day. He has been provided with Movantik for constipation. We would like to thank you for letting us participate in his care. He will call us if he has any concerns. <ELECTRONICALLY SIGNED> By: Tae Garcia MD 03/01/20 0825 [id number]. Junior Garcia MD /nt
== END ==
LOC: M.PC 04:19
DX: R51 Headache (principal); I10 Essential (primary) hypertension; E11.9 Type 2 diabetes mellitus without complications; G47.30 Sleep apnea, unspecified; M10.9 Gout, unspecified; E03.9 Hypothyroidism, unspecified; E78.5 Hyperlipidemia, unspecified; H35.30 Unspecified macular degeneration

== ENCOUNTER → 2020-03-21 | Outpatient (CLI) | payer BC, MEDICARE ==
--- NOTE | 2020-03-23 09:31 | PAINCON ---
[address] [address] PAIN MANAGEMENT CONSULTATION Name: MORTONNEREIDA Room: [facility] GONZALEZ Sheridan#: [id number] Admission: 03/21/20 Attend Phys: Tae Garcia MD Discharge: Date of : 59 Report #: [id number] THIS REPORT FOR: //name// cc: Wilmer Issa Vincent R. DO ~ THIS REPORT FOR: //name// CC: Tae Issa DATE OF SERVICE: 03/21/2020 CHIEF COMPLAINT: Continued Chronic migraine pain. HISTORY: The patient is a 64-year-old gentleman who has been followed in the pain clinic because of chronic pain. He suffers from chronic headaches. This has been ongoing for the last 15 years. He has tried a multitude of treatment course over the 15 years. He has found that use of morphine continues to be most efficacious. Pain is involving the left temporal area. He also has some pain in his low back area. He has returned today with the hopes of renewing his medications. He moved from [place] to [place]. His works for [employer]. If he had his brothers, he probably have remained in [place]. Pain score 2/10. The patient feels the pain as above 50% improved with his current medication regimen. Activities exacerbate his pain include walking, sitting, standing changes in temperature. He feels that his medication is helpful. CURRENT MEDICATIONS: Allopurinol 100 mg, Lipitor 20 mg, Synthroid 88 mcg, morphine sulfate 15 mg immediate release b.i.d., MS Contin 15 mg 1 p.o. b.i.d., multivitamins, omeprazole 40 mg, Flomax 0.4 mg, cream for skin cancer. PAIN CLINIC ASSESSMENT AND PQRS: 1. The patient does have some arthritic changes in his back. He has pain in his shoulders. He is not being treated for rheumatoid arthritis. 2. Height 5 feet 6 inches, weight 211 pounds, BMI 34. 3. Vital signs: Blood pressure 153/87, heart rate 74, respiratory rate 16, room air saturation 97%, temperature is 96.9. 4. Pain intensity is 2/10. 5. Fall history: The patient has not fallen in the last 3 months. 6. Blood thinner. The patient is not on a blood thinning medication. 7. Hypertension. The patient is not being treated for hypertension. 8. Opioids greater than 6 weeks. The patient received medication from the pain clinic. 9. Risk assessment tool, low for opioid use. 10. Functional assessment tool reviewed. 11. Recreational drug use: The patient denies. 12. Tobacco: [place] [address] PAIN MANAGEMENT CONSULTATION Name: NEREIDA MORTON Room: [facility]#: [id number] Admission: 03/21/20 Attend Phys: Tae Garcia MD Discharge: Date of : 59 Report #: [id number] 13. Alcohol: The patient drinks alcoholic beverages on occasion. PHYSICAL EXAMINATION: GENERAL: The patient is a well-developed, well-nourished white male. Appears his stated age. He is alert and oriented x 3. His affect is appropriate. Speech is fluent. HEENT: Normocephalic, atraumatic. Extraocular eye muscles intact. The patient has pain and discomfort in the left temporal area. Rates it as a 2-3/10 today. NECK: Without adenopathy or JVD. HEART: Regular rate. ABDOMEN: Nontender. Bowel sounds present. MUSCULOSKELETAL: The patient with discomfort in his left shoulder. Status post surgery on the left shoulder. EXTREMITIES: Lower extremity muscle strength judged to be 5-/5 for the major muscle groups in the lower extremity. The patient is not walking with a cane. IMPRESSION: 1. Chronic headaches involving the left frontal area, which has been problematic for the last 15 years, treated with his current regimen, which is helpful. 2. Left shoulder pain improved after left shoulder repair. 3. Gout. 4. Hypertension. 5. Borderline diabetes. 6. Sleep apnea, and allergic rhinitis. 7. History of cancer/melanoma of the skin. 8. Chronic obstructive pulmonary disease. 9. Depression. 10. Hypothyroidism. 11. Hyperlipidemia. 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 13. Macular degeneration, left eye. 14. 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 15. History of urinary tract infections. RECOMMENDATIONS: We discussed treatment options with the patient. At this juncture, he feels medications continue to be helpful. We will continue with the medications. He is aware that the medications can become less effective over time. Temporal area with chronic migraine continues to be problematic. We will continue with the morphine long-acting and short-acting medications. The patient will take morphine 15 mg immediate release b.i.d. and take MS Contin 15 mg 1 p.o. b.i.d. He will call us [place] [address] PAIN MANAGEMENT CONSULTATION Name: NEREIDA MORTON Carol [facility] [id number] Admission: 03/21/20 Attend Phys: Tae Garcia MD Discharge: Date of : 59 Report #: [id number] We would like to thank you for letting us participate in his care. His scripts have been electronically sent to his pharmacy. <ELECTRONICALLY SIGNED> By: Tae Garcia MD 03/23/20 0931 [id number] [id number]. Junior Garcia MD /nt
== END ==
LOC: M.PC 04:21
DX: G43.909 Migraine, unspecified, not intractable, without status migrainosus (principal); M25.512 Pain in left shoulder; M10.9 Gout, unspecified; I10 Essential (primary) hypertension; E11.9 Type 2 diabetes mellitus without complications; G47.30 Sleep apnea, unspecified; J44.9 Chronic obstructive pulmonary disease, unspecified; F32.9 Major depressive disorder, single episode, unspecified; E03.9 Hypothyroidism, unspecified; E78.5 Hyperlipidemia, unspecified; H35.30 Unspecified macular degeneration; Z92.21 Personal history of antineoplastic chemotherapy; Z87.440 Personal history of urinary (tract) infections; Z98.890 Other specified postprocedural states; Z79.899 Other long term (current) drug therapy

== ENCOUNTER → 2020-04-25 | Outpatient (CLI) | payer MEDICARE ==
[~2020-04-25] MED LIST changes: +MEDROLDOSEPACK PO
--- NOTE | 2020-05-01 09:22 | PAINCON ---
[facility] [address] [place] [address] PAIN MANAGEMENT CONSULTATION Name: MORTONNEREIDA Room: [facility] GONZALEZ Sheridan#: [id number] Admission: 04/25/20 Attend Phys: Tae Garcia MD Discharge: Date of : 59 Report #: [id number] THIS REPORT FOR: //name// cc: Wilmer Issa Vincent R. DO THIS REPORT FOR: //name// CC: Tae Issa DO DATE OF SERVICE: 04/25/2020 CHIEF COMPLAINT: "I have got into the Poison Stacey and itching all over." HISTORY: The patient is a 64-year-old gentleman who has been followed in the Pain Clinic because of chronic pain. He suffers from chronic headache pain. He has had this for the last 15 years. He finds that his medications of morphine continue to be efficacious. The pain is located in the same area is in the left temporal area. He finds that this medication and the regimen has been helpful over the last 15 years. The patient was cleaning brushed away. He unfortunately got into the Poison Stacey. He has had a terrible time since that encounter. He is having itching on his arms, legs, back side of the face and finds this quite painful. Overall, his pain is about 50% improved with the use of his current medications. He notes that walking, sitting, standing, climbing stairs can be somewhat problematic. At this point, he would like to have medications to help with the Poison Stacey as well as with his pain. CURRENT MEDICATIONS: Allopurinol 100 mg, Lipitor 20 mg, Synthroid 88 mcg, morphine sulfate 15 mg immediate release b.i.d., MS Contin 15 mg 1 p.o. b.i.d., multivitamins, omeprazole 40 mg, and Flomax 0.4 mg cream for skin. PAIN CLINIC ASSESSMENT/PQRS: 1. The patient does have some arthritic changes in his back. He has pain in his shoulders. He is not being treated for rheumatoid arthritis. 2. Height is 5 feet 6 inches, weight 212 pounds, BMI is 34.2. 3. Vital signs: Blood pressure is 153/87, heart rate 74, respiratory rate is 16, room air saturation is 94.7%, and temperature is 96.7. 4. Pain intensity, 3-4/10. 5. Fall history: The patient has not fallen in the last 3 months. 6. Blood thinner. The patient is not on a blood thinning medication. 7. Hypertension. The patient is not being treated for hypertension. 8. Opioids greater than 6 weeks. The patient receives medication from one [place] [address] PAIN MANAGEMENT CONSULTATION Name: NEREIDA MORTON Room: [facility] SILAS Arvin#: [id number] Admission: 04/25/20 Attend Phys: Tae Garcia MD Discharge: Date of : 59 Report #: [id number] 9. Risk assessment tool, low for opioid use. 10. Functional assessment tool reviewed. 11. Recreational drug use. The patient denies. 12. Tobacco: The patient denies. 13. Alcohol: The patient drinks alcoholic beverages on occasion. PHYSICAL EXAMINATION: GENERAL: The patient is a well-developed, well-nourished white male. Appears his stated age. He is alert and oriented x 3. His affect is appropriate. Speech is fluent. HEENT: Normocephalic, atraumatic. Extraocular eye muscles intact. Sclerae nonicteric. Mucous membranes are moist. NECK: Without adenopathy or JVD. HEART: Regular rate. ABDOMEN: Nontender. Bowel sounds present. SKIN: The patient has an outbreak of poison Stacey on the right arm, has a towel on there, states that it is weepy, has pain on it, has discomfort on the left thigh, has it on his arm as well as on the left portion of his face. IMPRESSION: 1. Chronic pain involving the left frontal area, which has been problematic for the last 15 years and treated with current regimen. 2. Outbreak of poison Stacey after doing some work around his house. 3. Left shoulder pain improved after repair. 4. Gout. 5. Hypertension. 6. Borderline diabetes. 7. Sleep apnea and allergic rhinitis. 8. History of cancer/melanoma of the skin. 9. Chronic obstructive pulmonary disease. 10. Depression. 11. Hypothyroidism. 12. Hyperlipidemia. 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 14. Macular degeneration, left eye. 15. 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 16. History of urinary tract infections. RECOMMENDATIONS: We discussed treatment options with the patient. At this juncture, we will continue with his medications. A script for his opioids has been provided. The patient will continue with the morphine extended release 15 mg 1 p.o. b.i.d. He will also continue with morphine immediate release 15 mg 1 p.o. b.i.d. He finds the medications are 50% helpful with his pain. He is aware that the opioid medications can become less effective as time goes on. He also is having extreme pain and itching as a result of the matter of the Poison [facility] [address] [place] [address] PAIN MANAGEMENT CONSULTATION Name: NEREIDA MORTON Room: [facility] Lyndsey.Pavan.#: [id number] Admission: 04/25/20 Attend Phys: Tae Garcia MD Discharge: Date of : 59 Report #: [id number] Stacey. He will be provided a Medrol Dosepak to take. He will have a second Medrol Dosepak to take, should they first one not be substantial. He will call us, if he has any concerns. We would like to thank you for letting us participate in his care. We hope he continues to improve. <ELECTRONICALLY SIGNED> By: Tae Garcia MD 05/01/20 0922 0419 [id number]. Junior Garcia MD /nt
== END ==
LOC: M.PC 04-18 08:50
DX: M25.512 Pain in left shoulder (principal); M10.9 Gout, unspecified; I10 Essential (primary) hypertension; E11.9 Type 2 diabetes mellitus without complications; G47.30 Sleep apnea, unspecified; F32.9 Major depressive disorder, single episode, unspecified; J44.9 Chronic obstructive pulmonary disease, unspecified; E03.9 Hypothyroidism, unspecified; E78.5 Hyperlipidemia, unspecified; Q62.5 Duplication of ureter; F11.20 Opioid dependence, uncomplicated; H35.362 Drusen (degenerative) of macula, left eye; Z85.9 Personal history of malignant neoplasm, unspecified; Z51.11 Encounter for antineoplastic chemotherapy; Z87.440 Personal history of urinary (tract) infections; Z79.899 Other long term (current) drug therapy

== ENCOUNTER → 2020-05-23 | Outpatient (CLI) | payer MEDICARE ==
--- NOTE | 2020-06-08 15:59 | PAINCON ---
[address] [address] PAIN MANAGEMENT CONSULTATION Name: MORTONNEREIDA D Room: [facility] GONZALEZ Sheridan#: [id number] Admission: 05/23/20 Attend Phys: Tae Garcia MD Discharge: Date of : 59 Report #: [id number] THIS REPORT FOR: //name// cc: Wilmer Issa Vincent R. DO ~ THIS REPORT FOR: //name// CC: Tae Issa DATE OF SERVICE: 05/23/2020 CHIEF COMPLAINT: Continued chronic migraine history. FOLLOWUP HISTORY: The patient is a 64-year-old gentleman who has been followed in the pain clinic. As you recall, he has chronic headaches, which have been ongoing for a number of years. He is also noticed some low back pain today. He had a significant outbreak of poison jac. At the last visit he was given a Medrol Dosepak. He states that this help to clear that up quite nicely. He has returned today for renewal of his medications. He feels that they provided about 80% benefit in pain reduction. He has been feeling more tired. He has followed up with his primary care physician. He states that he is going to have some lab work perform. Walking, prolonged standing, certain activities, lifting and bending can exacerbate his pain and discomfort. CURRENT MEDICATIONS: Allopurinol 100 mg, Lipitor 20 mg, Synthroid 88 mcg, morphine sulfate 15 mg immediate-release b.i.d., MS Contin 15 mg b.i.d., multivitamins, omeprazole 40 mg, Flomax 0.4 mg, and cream for skin cancer. PAIN CLINIC ASSESSMENT AND PQRS: 1. The patient does have some arthritic changes in his back. He has pain in the shoulders. He is not being treated for rheumatoid arthritis. 2. Height 5 feet 6 inches, weight 213 pounds, BMI is 34. 3. Vital signs: Blood pressure 130/70, heart rate 80, respiratory rate 16, room air saturation 98%, and temperature is 98.0. 4. Pain score 2/10. 5. Fall history: The patient has not fallen in the last 3 months. 6. Blood thinner. The patient is not on a blood thinning medication. 7. Opioids greater than 6 weeks. The patient receives medications from the pain clinic. 8. Risk assessment tool, low for opioid use. 9. Functional assessment tool, reviewed. 10. Recreational drug use. The patient denies. 11. Tobacco: The patient denies. 12. Alcohol: The patient [place] [address] PAIN MANAGEMENT CONSULTATION Name: NEREIDA MORTON Room: [facility]#: [id number] Admission: 05/23/20 Attend Phys: Tae Garcia MD Discharge: Date of : 59 Report #: [id number] PHYSICAL EXAMINATION: GENERAL: The patient is a well-developed, well-nourished white male. Appears his stated age. He is alert and oriented x 3. His affect is appropriate. Speech is fluent. HEENT: Normocephalic, atraumatic. Extraocular eye muscles intact. Sclerae nonicteric. Mucous membranes are moist. The patient is wearing a mask. NECK: Without adenopathy or JVD. HEART: Regular rate. ABDOMEN: Nontender. Bowel sounds present. SKIN: Improved with the resolution of the poison jac rash. IMPRESSION: 1. Chronic pain, left frontal area, which has been problematic for the last 15 years, treated with his current regimen. 2. Outbreak of poison jac, which is improved. 3. Left shoulder pain improved after shoulder repair. 4. Gout. 5. Hypertension. 6. Borderline diabetes. 7. Sleep apnea and allergic rhinitis. 8. History of cancer/melanoma of the skin. 9. Chronic obstructive pulmonary disease. 10. Depression. 11. Hypothyroidism. 12. Hyperlipidemia. 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 14. Macular degeneration, left eye. 15. Prostate mets to the colon, status post chemotherapy and cancer free at this juncture. 16. History of urinary tract infection. RECOMMENDATIONS: We discussed treatment options with the patient. At this juncture, we will continue with his medications. He feels that these medications are helpful. They provide him with about 70% improvement in his pain level. He is not having any problems with them. He is able to think clearly. We will continue with his medications. A script for his medications has been provided. He will continue with morphine sulfate immediate-release 15 mg b.i.d. He will call us if he has any concerns. We would like to thank you for letting us participate in his care. We hope he continues to improve. <ELECTRONICALLY SIGNED> By: Tea Garcia MD 06/08/20 1559 1049 [id number]. Junior Garcia MD /nt
== END ==
LOC: M.PC 04:37
PROVIDERS: ATTEND Anesthesiology Pain Medicine
DX: R51 Headache (principal); I10 Essential (primary) hypertension; E78.5 Hyperlipidemia, unspecified; G47.30 Sleep apnea, unspecified; T65.891A Toxic effect of other specified substances, accidental (unintentional), initial encounter; J30.9 Allergic rhinitis, unspecified; E03.9 Hypothyroidism, unspecified; H35.30 Unspecified macular degeneration; J44.9 Chronic obstructive pulmonary disease, unspecified; L29.8 Other pruritus; M10.9 Gout, unspecified; Y92.89 Other specified places as the place of occurrence of the external cause

== ENCOUNTER → 2020-06-27 | Outpatient (CLI) | payer MEDICARE, BC ==
--- NOTE | 2020-06-28 09:00 | PAINCON ---
[facility] [address] [place] [address] PAIN MANAGEMENT CONSULTATION Name: MORTONNEREIDA D Room: [facility] GONZALEZ Sheridan#: [id number] Admission: 06/27/20 Attend Phys: Tae Garcia MD Discharge: Date of : 59 Report #: [id number] THIS REPORT FOR: //name// cc: Wilmer Issa DO ~ THIS REPORT FOR: //name// CC: Tae Issa DO DATE OF SERVICE: 06/27/2020 CHIEF COMPLAINT: "The pain medicine is helpful and I got a new fiore boat." HISTORY: The patient is a 65-year-old gentleman who has been followed in the pain clinic because of chronic pain. He has been experiencing pain and chronic headaches for over 15 years. He has returned to the pain clinic for renewal of his medications. He is not having any complications. He notes that the pain in his low back is constant as well. He has used fewer of the morphine immediate-release tablets. He feels that he only needs the morphine extended-release tablets today. He rates his pain as a 3/10. He is quite excited about his new fiore boat. He has gone fishing with a friend. He notes that the pain can be problematic with walking, standing, lifting and bending. He does walk with a cane. ALLERGIES: No known drug allergies. CURRENT MEDICATIONS: Cream for skin cancer, Flomax 0.4 mg, multivitamins, Synthroid 88 mcg, omeprazole 40 mg, Lipitor 20 mg, allopurinol 100 mg. PAIN CLINIC ASSESSMENT AND PQRS: 1. The patient does have some arthritic changes in his back. He has arthritic changes in his shoulder. He is not being treated for rheumatoid arthritis. 2. Height 5 feet 6 inches, weight 216 pounds, BMI is 35, blood pressure 149/90, heart rate 96, respiratory rate 16, room air saturation 95%, temperature 97.4. 3. Pain intensity 02/07. 4. Fall history: The patient has not fallen in the last 3 months. 5. Blood thinner. The patient is not on a blood thinning medication. 6. Opioids. The patient receives medication from the pain clinic. 7. Risk assessment tool, low for opioid use. 8. Functional assessment tool reviewed. 9. Recreational drug use. The patient denies. 10. Tobacco: The patient denies. 11. Alcohol: The [place] [address] PAIN MANAGEMENT CONSULTATION Name: NEREIDA MORTON Room: [facility]#: [id number] Admission: 06/27/20 Attend Phys: Tae Garcia MD Discharge: Date of : 59 Report #: [id number] PHYSICAL EXAMINATION: GENERAL: The patient is a well-developed, well-nourished white male. Appears his stated age. He is alert and oriented x 3. His affect is appropriate. Speech is fluent. HEENT: Normocephalic, atraumatic. Extraocular eye muscles intact. Sclerae nonicteric. Mucous membranes are moist. The patient is wearing a mask. NECK: Without adenopathy or JVD. HEART: Regular rate. ABDOMEN: Nontender. Bowel sounds present. SKIN: Improved after poison Stacey episode. IMPRESSION: 1. Chronic pain, left frontal area, which has been problematic for the last 15 years, treated with his current medical regimen of morphine. 2. Outbreak of poison Stacey which is improved. 3. Left shoulder pain improved after shoulder repair. 4. Gout. 5. Hypertension. 6. Borderline diabetes. 7. Sleep apnea and allergic rhinitis. 8. History of cancer/melanoma of the skin. 9. Chronic obstructive pulmonary disease. 10. Depression. 11. Hypothyroidism. 12. Hyperlipidemia. 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 14. Macular degeneration, left eye. 15. 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 16. History of urinary tract infection. RECOMMENDATIONS: We discussed treatment options with the patient. At this point, we will proceed with the patient's current medical regimen of morphine sulfate extended-release. He states that he has some of the morphine immediate-release tablets and does not need them at this juncture. He feels that his pain is about 80% improved with his current medical regimen. He has had no problems with the medications. A script for morphine extended-release 15 mg 1 p.o. b.i.d. have been written. The patient will call us if he has any concerns. He is quite excited about his new fiore boat. He is trying it out on a regular basis. [address] [place] [address] PAIN MANAGEMENT CONSULTATION Name: NEREIDA MORTON Room: [facility] GONZALEZ Sheridan#: [id number] Admission: 06/27/20 Attend Phys: Tae Garcia MD Discharge: Date of : 59 Report #: [id number] We would like to thank you for letting us participate in his care. We hope he continues to improve. <ELECTRONICALLY SIGNED> By: Tae Garcia MD 06/28/20 0900 1250 1348N. Junior Garcia MD /nt
== END ==
LOC: M.PC 06-20 08:30
PROVIDERS: ATTEND Anesthesiology Pain Medicine
DX: R51 Headache (principal); G89.29 Other chronic pain; M10.9 Gout, unspecified; I10 Essential (primary) hypertension; R73.03 Prediabetes; G47.33 Obstructive sleep apnea (adult) (pediatric); J30.9 Allergic rhinitis, unspecified; J44.9 Chronic obstructive pulmonary disease, unspecified; F32.9 Major depressive disorder, single episode, unspecified; E03.9 Hypothyroidism, unspecified; Q62.5 Duplication of ureter; H35.30 Unspecified macular degeneration; Z92.21 Personal history of antineoplastic chemotherapy; Z85.820 Personal history of malignant melanoma of skin; Z87.440 Personal history of urinary (tract) infections

== ENCOUNTER → 2020-07-25 | Outpatient (CLI) | payer MEDICARE, BC ==
--- NOTE | 2020-08-01 15:37 | PAINCON ---
[address] [address] PAIN MANAGEMENT CONSULTATION Name: PRAVEENNEREIDA Carol Room: [facility] GONZALEZ Sheridan#: [id number] Admission: 07/25/20 Attend Phys: Tae Garcia MD Discharge: Date of : 59 Report #: [id number] THIS REPORT FOR: //name// cc: Wilmer Issa Vincent R. DO ~ THIS REPORT FOR: //name// CC: Tae Issa DATE OF SERVICE: 07/25/2020 CHIEF COMPLAINT: Here for medications and I am having back pain as well as my headaches. HISTORY: The patient is a 65-year-old gentleman who has been followed in the pain clinic because of chronic headaches. These have been problematic over the last 15 years. An extensive workup has had no definite findings. He has been using opioid medications to keep the pain in check. At this juncture, he is having some pain in his low back as well. Overall, he feels that his pain is about 50% improved with use of morphine. He rates his pain as a 2/10. He is concerned about the COVID-19 pandemic. He has returned today for renewal of his medications. He does continue to have pain and discomfort in low back area and has walked with a cane. He would like to have his disabled license placard renewed. ALLERGIES: No known drug allergies. CURRENT MEDICATIONS: Cream for cancer, Flomax 0.4 mg, multivitamins, Synthroid 88 mcg, omeprazole 40 mg, Lipitor 20 mg, allopurinol 100 mg, morphine sulfate 15 mg IR b.i.d., morphine ER, MS Contin 15 mg one p.o. b.i.d. PAIN CLINIC ASSESSMENT/PQRS: 1. The patient does have some arthritic changes in his back. Has arthritic changes in his shoulders. He is not being treated for rheumatoid arthritis. 2. Height 5 feet 6 inches, weight 213 pounds, BMI is 34. 3. Vital signs: Blood pressure 138/76, heart rate 67, respiratory rate 16, room air saturation 99%,. Temperature is 97.3. Pain score 2/10. 4. Fall history: The patient has not fallen in the last 3 months. 5. Blood thinner. The patient is not on a blood thinning medication. 6. Opioids. The patient receives medication from the pain clinic. 7. Risk assessment tool, low for opioid use. 8. Functional assessment tool reviewed. 9. Recreational drug use. The patient denies. 10. Tobacco: The patient denies. 11. Alcohol: The patient [place] [address] PAIN MANAGEMENT CONSULTATION Name: NEREIDA MORTON Room: [facility] Arvin#: [id number] Admission: 07/25/20 Attend Phys: Tae Garcia MD Discharge: Date of : 59 Report #: [id number] PHYSICAL EXAMINATION: GENERAL: The patient is a well-developed, well-nourished white male. Appears his stated age. He is alert and oriented x 3. His affect is appropriate. Speech is fluent. HEENT: Normocephalic, atraumatic. Extraocular eye muscles intact. HEART: Regular. ABDOMEN: Nontender. NECK: Without adenopathy. MUSCULOSKELETAL: The patient has a chronic headache involving the temporal area. IMPRESSION: 1. Chronic pain, left frontal area, which has been problematic over the last 15 years and stable with his current use of morphine, outbreak of poison jac, which is resolved. 2. Left shoulder pain after shoulder repair. 3. Gout. 4. Hypertension. 5. Borderline diabetes. 6. Sleep apnea and allergic rhinitis. 7. History of cancer/melanoma of the skin. 8. Chronic obstructive pulmonary disease. 9. Depression. 10. Hypothyroidism. 11. Hyperlipidemia. 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 13. Macular degeneration, left eye. 14. 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 15. History of low back pain with radicular pain. RECOMMENDATIONS: We discussed treatment options with the patient. At this juncture, we will continue with his medications of morphine immediate release 15 mg b.i.d. He will also continue with morphine sulfate 15 mg every 12 hours. The patient feels his pain is about 50% improved. Notes he still has some pain with walking, standing, bending, and lifting. He has used a disability plate. A renewal of this placard for the next 6 months has been provided. The patient's medications has been sent to his pharmacy. He will call us if he has any concerns. [address] [address] PAIN MANAGEMENT CONSULTATION Name: NEREIDA MORTON Room: [facility] GONZALEZ Sheridan#: [id number] Admission: 07/25/20 Attend Phys: Tae Garcia MD Discharge: Date of : 59 Report #: [id number] We would like to thank you for letting us to participate in his care. We hope he continues to improve. <ELECTRONICALLY SIGNED> By: Tae Garcia MD 08/01/20 1537 0947 1412N. Junior Garcia MD /PMT
== END ==
LOC: M.PC 09:20
PROVIDERS: ATTEND Anesthesiology Pain Medicine
DX: R51 Headache (principal); M54.9 Dorsalgia, unspecified; G89.29 Other chronic pain; M25.512 Pain in left shoulder; M10.9 Gout, unspecified; F32.9 Major depressive disorder, single episode, unspecified; E03.9 Hypothyroidism, unspecified; R73.03 Prediabetes; I50.9 Heart failure, unspecified; J44.9 Chronic obstructive pulmonary disease, unspecified; H35.30 Unspecified macular degeneration; Q62.5 Duplication of ureter; Z92.21 Personal history of antineoplastic chemotherapy; Z85.820 Personal history of malignant melanoma of skin; Z85.038 Personal history of other malignant neoplasm of large intestine; Z87.39 Personal history of other diseases of the musculoskeletal system and connective tissue; Z85.46 Personal history of malignant neoplasm of prostate; Z79.899 Other long term (current) drug therapy

== ENCOUNTER → 2020-08-24 | Outpatient (CLI) | payer MEDICARE, BC ==
--- NOTE | ~2020-08-24 | PAINCON ---
[address] [address] PAIN MANAGEMENT CONSULTATION Name: PRAVEENNEREIDA Carol Room: [facility] Arvin#: [id number] Admission: 08/24/20 Attend Phys: Tae Garcia MD Discharge: Date of : 59 Report #: [id number] THIS REPORT FOR: //name// cc: Wilmer Issa Vincent R. DO ~ THIS REPORT FOR: //name// CC: Tae Issa DATE OF SERVICE: 08/24/2020 CHIEF COMPLAINT: Pain is stable in the low back area and I still have headaches. HISTORY: The patient is a 65-year-old gentleman who has been followed in the pain clinic. He suffers from chronic headaches. These headaches have been problematic over the last 15 years. Definite etiology has not been found. He has been using opioid medications to help control the pain over the number of years. He has been stable with this medication. He has returned today for renewal of his medication. Notes that his left arm has greater range of motion about 50% in the shoulder. He does still have some loss of movement. He states that it does not hurt to use at this point. He continues to walk with use of a cane. Continues to be conscientious regarding the COVID-19 pandemic. He has returned today for renewal of his medications. Notes that lifting, bending, cold weather, walking and standing can increase his discomfort. ALLERGIES: No known drug allergies. CURRENT MEDICATIONS: Cream to his skin for cancer, Flomax 0.4 mg, multivitamins, Synthroid 88 mcg, omeprazole 40 mg, Lipitor 20 mg, allopurinol 100 mg, morphine sulfate 15 mg immediate release b.i.d., morphine extended release, MS Contin 15 mg 1 p.o. b.i.d. PAIN CLINIC ASSESSMENT AND PQRS: 1. The patient does have some arthritic changes in his back. He has some arthritic changes in his shoulders. He is not being treated for rheumatoid arthritis. 2. Height 5 feet 6 inches, weight 216 pounds, BMI is 35. 3. Vital Signs: Blood pressure 138/72, heart rate 77, respiratory rate 14, room air saturation 97%, temperature 97.6. 4. Pain score 3/10. 5. Fall history: The patient has not fallen in the last 3 months. 6. Blood thinner. The patient is not on a blood thinning medication. 7. Opioids. The patient received medication from the pain clinic. 8. Risk assessment tool, low [place] [address] PAIN MANAGEMENT CONSULTATION Name: NEREIDA MORTON Room: [facility]#: [id number] Admission: 08/24/20 Attend Phys: Tae Garcia MD Discharge: Date of : 59 Report #: [id number] 9. Functional assessment tool reviewed. 10. Recreational drug use. The patient denies. 11. Tobacco: The patient denies. 12. Alcohol: The patient occasionally drinks alcoholic beverages. PHYSICAL EXAMINATION: GENERAL: The patient is a well-developed, well-nourished white male. Appears his stated age. He is alert and oriented x 3. His affect is appropriate. Speech is fluent. HEENT: Normocephalic, atraumatic. Extraocular eye muscles intact. Sclerae nonicteric. Mucous membranes are moist. The patient is wearing a facial covering. HEART: Regular rate. LUNGS: Clear. ABDOMEN: Nontender. EXTREMITIES: Upper extremity, the patient has more movement in his left shoulder area and has less pain, but still has some restriction of motion. The patient also complains of chronic headache involving the temporal area in its usual location. The patient walks with a slight limp. Uses a cane. IMPRESSION: 1. Chronic pain, left frontal area, which has been problematic over the last 15 years and stable with current use of morphine. 2. Left shoulder improved after shoulder repair. Decreased range of motion. 3. Gout. 4. Hypertension. 5. Borderline diabetes. 6. Sleep apnea and allergic rhinitis. 7. History of cancer/melanoma of the skin. 8. Chronic obstructive pulmonary disease. 9. Depression. 10. Hypothyroidism. 11. Hyperlipidemia. 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 13. Macular degeneration, left eye. 14. 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 15. History of low back pain with radicular pain. RECOMMENDATIONS: We discussed treatment options with the patient. We will continue with his current medications. A script for his medications of MS Contin 15 mg 1 p.o. b.i.d. has been provided. The patient will also continue with morphine sulfate immediate release 15 mg 1 p.o. b.i.d. He is aware that the opioid medications can become less effective as time goes on. Keeps his medications in a guarded area. He has changed his pharmacy. We will send the medication through the [facility] that he has given us. He will call [address] [address] PAIN MANAGEMENT CONSULTATION Name: NEREIDA MORTON Room: [facility] Marcelo#: [id number] Admission: 08/24/20 Attend Phys: Tae Garcia MD Discharge: Date of : 59 Report #: [id number] us if he has any concerns. We would like to thank you for letting us participate in his care. We hope he continues to improve. The patient has gleaned greater than 50% improvement with use of his medications. He will continue to be conscientious regarding COVID-19. By: [id number]. Junior Garcia MD /DIANE
== END ==
LOC: M.PC 08:12
PROVIDERS: ATTEND Anesthesiology Pain Medicine
DX: M47.816 Spondylosis without myelopathy or radiculopathy, lumbar region (principal); R51 Headache; M54.5 Low back pain; M10.9 Gout, unspecified; I10 Essential (primary) hypertension; E03.9 Hypothyroidism, unspecified; J44.9 Chronic obstructive pulmonary disease, unspecified; E78.5 Hyperlipidemia, unspecified

== ENCOUNTER → 2020-09-21 | Outpatient (CLI) | payer MEDICARE, BC ==
[~2020-09-21] MED LIST changes: +KETOROLAC TROME10 MG PO
--- NOTE | 2020-09-22 08:24 | PAINCON ---
[address] [address] PAIN MANAGEMENT CONSULTATION Name: MORTONNEREIDA Room: [facility] LyndseyEmmett#: [id number] Admission: 09/21/20 Attend Phys: Tae Garcia MD Discharge: Date of : 59 Report #: [id number] THIS REPORT FOR: //name// cc: Wilmer Issa Vincent R. DO ~ CC: Tae Issa DATE OF SERVICE: 09/21/2020 CHIEF COMPLAINT: Low back pain and constant headaches. HISTORY: The patient is a 65-year-old gentleman who has been followed in the pain clinic. Over the past 15 years, he has had remarkable headaches. He has found morphine as well as morphine sulfate 15 mg and MS Contin continue to be helpful. He has taken the medication as prescribed. Denies any significant changes. Continues to have pain in the temporal area. He has some improvement in his left arm. Still has some limited ability to lift his right arm above the horizon and over his head. He notes that activities such as walking, standing, bending, and lifting can be problematic. ALLERGIES: No known drug allergies. CURRENT MEDICATIONS: 1. Cream for cancer of the skin. 2. Flomax 0.4 mg. 3. Multivitamins. 4. Synthroid 88 mcg. 5. Omeprazole 40 mg. 6. Lipitor 20 mg. 7. Allopurinol 100 mg. 8. Morphine sulfate Immediate Release 15 mg b.i.d. 9. Morphine Extended Release 15 mg p.o. b.i.d. PAIN CLINIC ASSESSMENT AND PQRS: 1. The patient has some arthritic changes in his back. He is not being treated for osteoarthritis. He is not being treated for rheumatoid arthritis. 2. Height 5 feet 6 inches, weight 219 pounds, BMI is 35. 3. Vital signs: Blood pressure 130/78, heart rate 94, respiratory rate 20, room air saturation 94%, temperature 98.0. 4. Pain intensity 3-4/10. 5. Fall history: The patient has not fallen in the last 3 months. He is walking with a cane. 6. Blood thinner. The patient is not on a blood thinning medication. 7. Opioids. The patient received medication from the pain clinic. 8. Risk assessment tool, [place] [address] PAIN MANAGEMENT CONSULTATION Name: NEREIDA MORTON Room: [facility]#: [id number] Admission: 09/21/20 Attend Phys: Tae Garcia MD Discharge: Date of : 59 Report #: [id number] 9. Functional assessment tool reviewed. 10. Recreational drug use: The patient denies. 11. Tobacco: The patient denies. 12. Alcohol: The patient occasionally drinks alcoholic beverages weekly. PHYSICAL EXAMINATION: GENERAL: The patient is a well-developed, well-nourished white male. Appears his stated age. He is alert and oriented x 3. His affect is appropriate. Speech is fluent. HEENT: Normocephalic, atraumatic. Extraocular eye muscles are intact. Sclerae nonicteric. Mucous membranes are moist. The patient is wearing a facial covering. HEART: Regular rate. LUNGS: Clear. ABDOMEN: Nontender. EXTREMITIES: Upper extremity muscle strength judged to be 5-/5 on the right, 5-/5 on the left with limited range of motion. Lower extremity muscle strength judged to be 5-/5 for the major muscle groups in the lower extremity. The patient walks with a limp. He uses a cane. IMPRESSION: 1. Chronic pain, left frontal area, which has been problematic over the last 15 years, which is stable with current medications. 2. Left shoulder improved after surgical repair with still decreased range of motion. 3. Gout. 4. Hypertension. 5. Borderline diabetes. 6. Sleep apnea and allergic rhinitis. 7. History of cancer/melanoma of the skin. 8. Chronic obstructive pulmonary disease. 9. Depression. 10. Hypothyroidism. 11. Hyperlipidemia. 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 13. Macular degeneration, left eye. 14. 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 15. History of low back pain, radicular pain. RECOMMENDATIONS: We discussed treatment options with the patient. At this juncture, we will continue with his medications. He feels the medications continue to be beneficial. He has taken the medication as prescribed. He is aware that opioid medications can become less effective as time goes on. He has been using for 15 years and feels that overall things are stable. He is aware that certain patients have become addicted to these medications. He keeps his [facility] [address] [place] [address] PAIN MANAGEMENT CONSULTATION Name: NEREIDA MORTON Room: [facility]#: [id number] Admission: 09/21/20 Attend Phys: Tae Garcia MD Discharge: Date of : 59 Report #: [id number] medications in a guarded area. We would like to thank you for letting us participate in his care. A script for his medications have been provided and sent to his pharmacy. He will continue with morphine sulfate 15 mg 1 p.o. b.i.d. He will also continue with morphine sulfate Slow Release 15 mg b.i.d. <ELECTRONICALLY SIGNED> By: Tae Garcia MD 09/22/20 0824 0915 [id number]. Junior Garcia MD /nt
== END ==
LOC: M.PC 08:08
PROVIDERS: ATTEND Anesthesiology Pain Medicine
DX: M54.5 Low back pain (principal); C61 Malignant neoplasm of prostate; C78.5 Secondary malignant neoplasm of large intestine and rectum; R51.9 Headache, unspecified; G89.29 Other chronic pain; I10 Essential (primary) hypertension; M10.9 Gout, unspecified; E11.9 Type 2 diabetes mellitus without complications; G47.33 Obstructive sleep apnea (adult) (pediatric); J30.9 Allergic rhinitis, unspecified; J44.9 Chronic obstructive pulmonary disease, unspecified; F32.9 Major depressive disorder, single episode, unspecified; E03.9 Hypothyroidism, unspecified; E78.5 Hyperlipidemia, unspecified; Z85.828 Personal history of other malignant neoplasm of skin; Q62.5 Duplication of ureter; Z87.39 Personal history of other diseases of the musculoskeletal system and connective tissue; Z79.899 Other long term (current) drug therapy

== ENCOUNTER → 2020-10-19 | Outpatient (CLI) | payer MEDICARE, BC | LOC: M.PC 08:15 | PROVIDERS: ATTEND Anesthesiology Pain Medicine | DX: M54.16 Radiculopathy, lumbar region (principal); H35.30 Unspecified macular degeneration; E78.5 Hyperlipidemia, unspecified; I10 Essential (primary) hypertension; E03.9 Hypothyroidism, unspecified; J44.9 Chronic obstructive pulmonary disease, unspecified; G47.30 Sleep apnea, unspecified ==

== ENCOUNTER → 2020-11-16 | Outpatient (CLI) | payer BC, MEDICARE | LOC: M.PC 08:22 | PROVIDERS: ATTEND Anesthesiology Pain Medicine | DX: M54.5 Low back pain (principal); R51.9 Headache, unspecified ==

== ENCOUNTER → 2020-12-14 | Outpatient (CLI) | payer BC, MEDICARE ==
[~2020-12-14] MED LIST changes: +AMITRIPTYLINE H10 M3 PO
== END ==
LOC: M.PC 08:15
PROVIDERS: ATTEND Anesthesiology Pain Medicine
DX: G89.29 Other chronic pain (principal); M25.512 Pain in left shoulder; M10.9 Gout, unspecified; I10 Essential (primary) hypertension; G47.30 Sleep apnea, unspecified; J44.9 Chronic obstructive pulmonary disease, unspecified; F32.9 Major depressive disorder, single episode, unspecified; E03.9 Hypothyroidism, unspecified; E78.5 Hyperlipidemia, unspecified; H35.30 Unspecified macular degeneration; Z85.820 Personal history of malignant melanoma of skin; Z85.46 Personal history of malignant neoplasm of prostate; Z79.891 Long term (current) use of opiate analgesic

== ENCOUNTER → 2021-01-11 | Outpatient (CLI) | payer BC, MEDICARE ==
[~2021-01-11] MED LIST changes: +MORPHINE SULFAT15 MG PO
== END ==
LOC: M.PC 08:06
PROVIDERS: ATTEND Anesthesiology Pain Medicine
DX: M54.5 Low back pain (principal); R51.9 Headache, unspecified; M79.652 Pain in left thigh; M25.512 Pain in left shoulder; M10.9 Gout, unspecified; I10 Essential (primary) hypertension; E11.9 Type 2 diabetes mellitus without complications; G47.30 Sleep apnea, unspecified; F32.9 Major depressive disorder, single episode, unspecified; E03.9 Hypothyroidism, unspecified; J44.9 Chronic obstructive pulmonary disease, unspecified; E78.5 Hyperlipidemia, unspecified; H35.30 Unspecified macular degeneration; C61 Malignant neoplasm of prostate; C79.82 Secondary malignant neoplasm of genital organs; Z88.8 Allergy status to other drugs, medicaments and biological substances; Z79.899 Other long term (current) drug therapy

== ENCOUNTER → 2021-03-08 | Outpatient (CLI) | payer BC, MEDICARE | LOC: M.PC 07:53 | PROVIDERS: ATTEND Anesthesiology Pain Medicine | DX: R51.9 Headache, unspecified (principal); G89.29 Other chronic pain; M25.512 Pain in left shoulder; M10.9 Gout, unspecified; I10 Essential (primary) hypertension; G47.30 Sleep apnea, unspecified; J30.9 Allergic rhinitis, unspecified; J44.9 Chronic obstructive pulmonary disease, unspecified; F32.9 Major depressive disorder, single episode, unspecified; E03.9 Hypothyroidism, unspecified; E78.5 Hyperlipidemia, unspecified; H35.30 Unspecified macular degeneration; Z85.46 Personal history of malignant neoplasm of prostate; Z85.038 Personal history of other malignant neoplasm of large intestine; Z85.820 Personal history of malignant melanoma of skin ==

== ENCOUNTER → 2021-05-03 | Outpatient (CLI) | payer BC, MEDICARE ==
[~2021-05-03] MED LIST changes: +AMITRIPTYLINE H10 M1 PO
== END ==
LOC: M.PC 07:52
PROVIDERS: ATTEND Anesthesiology Pain Medicine
DX: R51.9 Headache, unspecified (principal); M25.511 Pain in right shoulder; M10.9 Gout, unspecified; I10 Essential (primary) hypertension; G47.30 Sleep apnea, unspecified; J30.9 Allergic rhinitis, unspecified; F32.9 Major depressive disorder, single episode, unspecified; E03.9 Hypothyroidism, unspecified; E78.5 Hyperlipidemia, unspecified; H35.30 Unspecified macular degeneration; C79.82 Secondary malignant neoplasm of genital organs; Z85.820 Personal history of malignant melanoma of skin; Z87.440 Personal history of urinary (tract) infections

== ENCOUNTER → 2021-06-28 | Outpatient (CLI) | payer BC, MEDICARE | LOC: M.PC 07:50 | PROVIDERS: ATTEND Anesthesiology Pain Medicine | DX: R51.9 Headache, unspecified (principal); M25.512 Pain in left shoulder; M10.9 Gout, unspecified; I10 Essential (primary) hypertension; G47.30 Sleep apnea, unspecified; J30.9 Allergic rhinitis, unspecified; F32.9 Major depressive disorder, single episode, unspecified; E03.9 Hypothyroidism, unspecified; E78.5 Hyperlipidemia, unspecified; H35.30 Unspecified macular degeneration; C61 Malignant neoplasm of prostate; C78.5 Secondary malignant neoplasm of large intestine and rectum; Z87.440 Personal history of urinary (tract) infections ==

== ENCOUNTER → 2021-08-23 | Outpatient (CLI) | payer BC, MEDICARE | LOC: M.PC 07:53 | PROVIDERS: ATTEND Anesthesiology Pain Medicine | DX: C18.9 Malignant neoplasm of colon, unspecified (principal); C61 Malignant neoplasm of prostate; R51.9 Headache, unspecified; G89.29 Other chronic pain; M25.512 Pain in left shoulder; M10.9 Gout, unspecified; I10 Essential (primary) hypertension; G47.30 Sleep apnea, unspecified; E03.9 Hypothyroidism, unspecified; H35.30 Unspecified macular degeneration; Z79.899 Other long term (current) drug therapy ==

== ENCOUNTER → 2021-10-18 | Outpatient (CLI) | payer BC, MEDICARE ==
[~2021-10-18] MED LIST changes: +AMITRIPTYLINE H25 M3 PO
== END ==
LOC: M.PC 08:20
PROVIDERS: ATTEND Anesthesiology Pain Medicine
DX: G89.29 Other chronic pain (principal); M25.512 Pain in left shoulder; M54.50 Low back pain, unspecified; R51.9 Headache, unspecified; M10.9 Gout, unspecified; I10 Essential (primary) hypertension; E11.9 Type 2 diabetes mellitus without complications; G47.30 Sleep apnea, unspecified; F34.89 Other specified persistent mood disorders; E78.5 Hyperlipidemia, unspecified; H35.30 Unspecified macular degeneration; Z79.899 Other long term (current) drug therapy

== ENCOUNTER → 2021-12-13 | Outpatient (CLI) | payer MEDICARE | LOC: M.PC 08:10 | PROVIDERS: ATTEND Anesthesiology Pain Medicine | DX: G89.29 Other chronic pain (principal); M54.50 Low back pain, unspecified; M25.512 Pain in left shoulder; R51.9 Headache, unspecified; I10 Essential (primary) hypertension; G47.30 Sleep apnea, unspecified; E03.9 Hypothyroidism, unspecified; E78.5 Hyperlipidemia, unspecified; H35.30 Unspecified macular degeneration; M10.9 Gout, unspecified; R73.03 Prediabetes; Z79.899 Other long term (current) drug therapy ==

== ENCOUNTER → 2022-01-21 | Outpatient (CLI) | payer OTHER | LOC: M.CT 08:00 | PROVIDERS: ATTEND Internal Medicine Cardiovascular Disease | DX: Z13.6 Encounter for screening for cardiovascular disorders (principal); I25.10 Atherosclerotic heart disease of native coronary artery without angina pectoris ==